=== PATIENT | female | born 1990 | race Caucasian/White ===

== ENCOUNTER → 2020-11-03 | Outpatient (CLI) | payer BC ==
[2020-11-03 09:25] LABS: Basophils % (A) 1 %; Eosinophils # (A) 0.1 k/uL (0-0.7); Eosinophils % (A) 2 %; HCT 38.5 % (34.0-46.0); HGB 12.8 gm/dL (11.4-16.0); Lymphocytes # (A) 1.7 k/uL (1.0-4.8); Lymphocytes % (A) 32 %; MCH 28.4 pg (25.0-35.0); MCHC 33.4 g/dL (31.0-37.0); MCV 85.2 fL (80.0-100.0); Monocytes # (A) 0.3 k/uL (0-1.0); Monocytes % (A) 5 %; Neutrophils # (A) 3.2 k/uL (1.3-7.7); Neutrophils % (A) 59 %; Platelet Count 271 k/uL (150-450); RBC 4.52 m/uL (3.80-5.40); RDW 12.2 % (11.5-15.5); WBC 5.4 k/uL (3.8-10.6)
== END | disposition home or self-care (01) ==
LOC: LABPAT 08:53
PROVIDERS: ATTEND Obstetrics & Gynecology
DX: Z01.818 Encounter for other preprocedural examination (principal); N93.8 Other specified abnormal uterine and vaginal bleeding
CPT/HCPCS: 36415; 85025

== ENCOUNTER 2020-11-07 07:53 | Day surgery (SDC) | payer BC ==
[~2020-11-07 07:53] MED LIST: DEXAMETHASONE SOD PHOSPHATE 4 MG/ML 1 ML VIAL IV ONE; HYDROmorphone 0.5 MG/0.5 ML SYRINGE IVP PRN; LACTATED RINGERS 1,000 ML IV SCH; LIDOCAINE 1% (10MG/ML) FOR IV START INTRADERMA PRN; ONDANSETRON 4 MG/2 ML VIAL IVP ONE; Pre Op ABX Message 1 EACH MISC MISCELLANE ONE; SCOPOLAMINE 1.5MG/72HR PATCH TRANSDERM ONE
[2020-11-07] MEDS: MIDAZOLAM 2 MG/2 ML VIAL IVP ONE ×2 (08:27→08:29)
[2020-11-07] MEDS ORDERED: PROPOFOL 10 MG/ML 20 ML VIAL IV ONE (09:35)
[2020-11-07] MEDS ORDERED: fentaNYL (PF) 50 MCG/ML 2 ML AMP ONE (09:35)
[2020-11-07] MEDS ORDERED: LIDOCAINE 1% INJ 10MG/ML (20 ML MDV) ONE (09:35)
[2020-11-07] MEDS ORDERED: MIDAZOLAM 2 MG/2 ML VIAL ONE (09:35)
[2020-11-07] MEDS ORDERED: LIDOCAINE 1%-EPI 1:100,000 20 ML VIAL SUBMUCOSAL ONE (09:54)
--- NOTE | 2020-11-07 10:14 | P.OP ---
Date of Procedure: 11/07/20 Preoperative Diagnosis: Dysfunctional uterine bleeding Postoperative Diagnosis: Same Procedure(s) Performed: Diagnostic hysteroscopy with NovaSure endometrial ablation Anesthesia: MAC Surgeon: Mariya Rosado Estimated Blood Loss (ml): 5 IV fluids (ml): 400 Urine output (ml): 25 Pathology: none sent Condition: stable Disposition: PACU Operative Findings: Anterior uterus. Fluffy-appearing endometrium. No gross intracavitary lesions Description of Procedure: After the patient was met in the preoperative holding area and all questions were answered, she was taken to the operating room where anesthetic was administered without incident. Appropriate timeout protocol was undertaken. Patient was then positioned, prepped and draped in the dorsal high lithotomy position. The bladder was drained for approximately 25 mL of clear urine. Exam under anesthetic was undertaken and the uterus was noted to be anteverted and approximately 6 weeks' size. Weighted speculum was placed in the vagina and the cervix was grasped anteriorly with single-tooth tenaculum. Paracervical block with lidocaine plus epinephrine was placed. The uterus was sounded to 9 cm. The cervix was then sequentially dilated to allow for passage of the diagnostic hysteroscope. The hysteroscope was introduced and a fluffy endometrium was appreciated. No gross intracavitary lesions were noted. The bilateral tubal ostia were visualized. The hysteroscope was removed and the cervix was further dilated to allow for passage of the NovaSure ablation device. The device was inserted in the uterus with a cavity length of 5.5 cm, width of 3.5 cm. Cavity assessment test was passed without alarm. The device was enabled with a power of 106 W for a treatment cycle of 46 seconds. Following cessation of the treatment cycle the device was removed and the hysteroscope was reintroduced. The complete desiccation of the endometrium was appreciated. The hysteroscope was then removed. The cervix was inspected and the tenaculum was removed. No active bleeding was noted. All instruments removed from the vagina. The patient was awoken from anesthetic without incident and transported recovery area in good condition. All counts reported to me as correct by the operating room staff.
[2020-11-07 10:33] VITALS: TEMP 97.1
[2020-11-07 11:04] VITALS: RESP 18
[2020-11-07 11:24] VITALS: BP 140/80; PULSE 79
== END 2020-11-07 11:59 | disposition home or self-care (01) ==
LOC: OR 07:53
PROVIDERS: ATTEND Obstetrics & Gynecology
DX: N93.8 Other specified abnormal uterine and vaginal bleeding (principal); N92.4 Excessive bleeding in the premenopausal period; N94.6 Dysmenorrhea, unspecified; N92.1 Excessive and frequent menstruation with irregular cycle; Z98.51 Tubal ligation status; J45.909 Unspecified asthma, uncomplicated; Z98.890 Other specified postprocedural states; Z90.49 Acquired absence of other specified parts of digestive tract; Z90.89 Acquired absence of other organs; Z79.899 Other long term (current) drug therapy; Z87.59 Personal history of other complications of pregnancy, childbirth and the puerperium; Z82.5 Family history of asthma and other chronic lower respiratory diseases; Z82.49 Family history of ischemic heart disease and other diseases of the circulatory system; Z80.41 Family history of malignant neoplasm of ovary; Z80.49 Family history of malignant neoplasm of other genital organs
CPT/HCPCS: 81025; 58563; J2250; J1100; J2405; J2001; J3010; J2704

== ENCOUNTER 2022-07-03 18:43 | Inpatient (IN) | payer BC ==
[2022-07-03] MEDS ORDERED: ONDANSETRON 4 MG/2 ML VIAL IVP STA ×2 (19:46→21:47)
--- NOTE | 2022-07-03 19:51 | ED ---
General Adult HPI - General Chief complaint: Neuro Symptoms/Deficit Stated complaint: lt sided numbness after chiro appt Time Seen by Provider: 07/03/22 19:37 Source: patient, RN notes reviewed, old records reviewed Mode of arrival: wheelchair Limitations: no limitations - History of Present Illness Initial comments: 32-year-old female presents for evaluation of acute left-sided weakness to her left arm and leg. She also has numbness. Patient had seen her chiropractor and had a cervical adjustment. She immediately felt her symptoms including nausea and vomiting. She states she has been falling to the left. She denies headache. She has no chronic medical conditions. Patient does report that she is dizzy. Symptoms began at approximately 1735. Patient denies current . - Related Data Home Medications Medication Instructions Recorded Confirmed Albuterol Inhaler [Ventolin Hfa 2 puff INHALATION RT-Q6H PRN 11/03/20 07/03/22 Inhaler] Multivitamins, Thera [Multivitamin 1 tab PO DAILY 11/03/20 07/03/22 (formulary)] Beclomethasone Dip 80 Mcg/Puff 1 puff INHALATION RT-BID PRN 07/03/22 07/03/22 [Qvar 80 mcg] Dextroamphetamine/Amphetamine 20 mg PO BID 07/03/22 07/03/22 [Adderall 20 mg Tablet] Allergies Allergy/AdvReac Type Severity Reaction Status Date / Time No Known Allergies Allergy Verified 07/03/22 22:05 Review of Systems ROS Statement: Those systems with pertinent positive or pertinent negative responses have been documented in the HPI. ROS Other: All systems not noted in ROS Statement are negative. Past Medical History Past Medical History: No Reported History Additional Past Medical History / Comment(s): With her first she had mild pre-eclampsia (hypertension). History of Any Multi-Drug Resistant Organisms: None Reported Past Surgical History: Section, Cholecystectomy, Tonsillectomy Past Anesthesia/Blood Transfusion Reactions: Previous Problems w/ Anesthesia Additional Past Anesthesia/Blood Transfusion Reaction / Comment(s): HAD TO HAVE BLOOD TRANSFUSION WITH first c/s, took long time to come out-"they had to give me something to reverse the anesthesia" Past Psychological History: No Psychological Hx Reported Smoking Status: Never smoker Past Alcohol Use History: None Reported Past Drug Use History: None Reported - Past Family History Mother Family Medical History: No Reported History General Exam Limitations: no limitations General appearance: alert, in distress Head exam: Present: atraumatic, normocephalic Eye exam: Present: normal appearance, PERRL ENT exam: Present: normal exam Neck exam: Present: normal inspection. Absent: tenderness, meningismus Respiratory exam: Present: normal lung sounds bilaterally. Absent: respiratory distress, wheezes Cardiovascular Exam: Present: regular rate, normal rhythm GI/Abdominal exam: Present: soft. Absent: distended, tenderness, guarding Extremities exam: Present: normal inspection, normal capillary refill Neurological exam: Present: alert, oriented X3, CN II-XII intact, motor sensory deficit (NIH of 5, drift in the left upper extremity, left lower extremity, numbness to both upper lower left-sided extremity. + ataxia) Psychiatric exam: Present: anxious Skin exam: Present: warm, diaphoretic Course Vital Signs 07/03/22 07/03/22 07/03/22 19:28 21:59 22:27 Temperature 97.6 F 97 F L Pulse Rate 62 70 60 Respiratory 18 20 18 Rate Blood Pressure 167/92 123/102 127/61 O2 Sat by Pulse 100 98 98 Oximetry - Reevaluation(s) Reevaluation #1: 07/03/221944 Code stroke activated, patient taken immediately to computed tomography scan. 07/03/222014 Case discussed with Dr. Wallace, at the onset of evaluation evaluation and throughout the care of this patient. Reevaluation #2: 07/03/222049 I discussed case with the radiologist who did not see any carotid or vertebral artery dissection or occlusion. CT brain was negative for intracranial hemorrhage or mass effect. Reevaluation #3: 07/03/221929 Patient denies the possibility of . EKG Findings - EKG Comments: EKG Findings:: EKG: Sinus rhythm, rate of 75, DC interval 150, QRS duration 82, QTC 431, tremor artifact limiting assessment, no ST segment elevation. Medical Decision Making - Medical Decision Making 32-year-old female presenting with acute onset left-sided numbness and weakness as well as dizziness and vomiting. This occurred after a chiropractic adjustment prior to arrival. Patient states she had no symptoms prior to this. Patient denies headache. She denies chest pain or abdominal pain. On exam initial NIH is 5. She has left upper and lower extremity numbness and slight drift. She has an ataxia of the left upper extremity. Speech is clear. I did discuss the case with the stroke interventionalist throughout the care of the patient. We had initially discussed TPA, however there is improvement and the exam and her repeat NIH is 2 numbness and slight drift in the left upper extremity. Ataxia resolved. Patient and are reluctant to receive TPA. Lower extremity symptoms improved Patient does undergo CT imaging of the brain and C-spine without contrast and CT angiogram of the head and neck. There is no acute stenosis, no vertebral or carotid artery dissection, no acute bony abnormality identified. patient is given aspirin and Brilinta. IV fluids and symptom control for her dizziness and nausea. TPA was initially ordered but not administered due to improving NIH and patient and declining medication. Patient was offered TPA however felt that the risks outweigh the benefits and there was improvement in symptoms and reduction in NIH. Case discussed with Dr. Stacy who will admit. Neurology placed on consult. - Lab Data Result diagrams: 07/06/22 12:15 07/03/22 19:50 Lab Results 07/03/22 07/03/22 07/03/22 Range/Units 19:50 19:50 19:50 WBC 16.4 H (3.8-10.6) k/uL RBC 4.64 (3.80-5.40) m/uL Hgb 14.1 (11.4-16.0) gm/dL Hct 41.9 (34.0-46.0) % MCV 90.3 (80.0-100.0) fL MCH 30.3 (25.0-35.0) pg MCHC 33.6 (31.0-37.0) g/dL RDW 13.1 (11.5-15.5) % Plt Count 326 (150-450) k/uL MPV 7.2 Neutrophils % 85 % Lymphocytes % 11 % Monocytes % 3 % Eosinophils % 1 % Basophils % 0 % Neutrophils # 13.8 H (1.3-7.7) k/uL Lymphocytes # 1.8 (1.0-4.8) k/uL Monocytes # 0.4 (0-1.0) k/uL Eosinophils # 0.1 (0-0.7) k/uL Basophils # 0.1 (0-0.2) k/uL PT 10.4 (9.0-12.0) sec INR 1.0 (<1.2) APTT 20.1 L (22.0-30.0) sec Sodium 135 L (137-145) mmol/L Potassium 3.4 L (3.5-5.1) mmol/L Chloride 103 (98-107) mmol/L Carbon Dioxide 25 (22-30) mmol/L Anion Gap 7 mmol/L BUN 21 H (7-17) mg/dL Creatinine 0.58 (0.52-1.04) mg/dL Est GFR (CKD-EPI)AfAm >90 (>60 ml/min/1.73 sqM) Est GFR (CKD-EPI)NonAf >90 (>60 ml/min/1.73 sqM) Glucose 142 H (74-99) mg/dL Calcium 9.0 (8.4-10.2) mg/dL Total Bilirubin 0.6 (0.2-1.3) mg/dL AST 29 (14-36) U/L ALT 15 (4-34) U/L Alkaline Phosphatase 67 (38-126) U/L Troponin I (0.000-0.034) ng/mL Total Protein 7.4 (6.3-8.2) g/dL Albumin 4.7 (3.5-5.0) g/dL 07/03/22 Range/Units 19:50 WBC (3.8-10.6) k/uL RBC (3.80-5.40) m/uL Hgb (11.4-16.0) gm/dL Hct (34.0-46.0) % MCV (80.0-100.0) fL MCH (25.0-35.0) pg MCHC (31.0-37.0) g/dL RDW (11.5-15.5) % Plt Count (150-450) k/uL MPV Neutrophils % % Lymphocytes % % Monocytes % % Eosinophils % % Basophils % % Neutrophils # (1.3-7.7) k/uL Lymphocytes # (1.0-4.8) k/uL Monocytes # (0-1.0) k/uL Eosinophils # (0-0.7) k/uL Basophils # (0-0.2) k/uL PT (9.0-12.0) sec INR (<1.2) APTT (22.0-30.0) sec Sodium (137-145) mmol/L Potassium (3.5-5.1) mmol/L Chloride (98-107) mmol/L Carbon Dioxide (22-30) mmol/L Anion Gap mmol/L BUN (7-17) mg/dL Creatinine (0.52-1.04) mg/dL Est GFR (CKD-EPI)AfAm (>60 ml/min/1.73 sqM) Est GFR (CKD-EPI)NonAf (>60 ml/min/1.73 sqM) Glucose (74-99) mg/dL Calcium (8.4-10.2) mg/dL Total Bilirubin (0.2-1.3) mg/dL AST (14-36) U/L ALT (4-34) U/L Alkaline Phosphatase (38-126) U/L Troponin I <0.012 (0.000-0.034) ng/mL Total Protein (6.3-8.2) g/dL Albumin (3.5-5.0) g/dL Critical Care Time Critical Care Time: Yes Total Critical Care Time: 35 Disposition Clinical Impression: Cerebrovascular accident (CVA), Left-sided weakness Disposition: ADMITTED IP TO THIS [facility] Condition: Stable Is patient prescribed a controlled substance at d/c from ED?: No Time of Disposition: 21:30
[2022-07-03 20:01] LABS: Basophils # (A) 0.1 k/uL (0-0.2); Basophils % (A) 0 %; Eosinophils # (A) 0.1 k/uL (0-0.7); Eosinophils % (A) 1 %; HCT 41.9 % (34.0-46.0); HGB 14.1 gm/dL (11.4-16.0); Lymphocytes # (A) 1.8 k/uL (1.0-4.8); Lymphocytes % (A) 11 %; MCH 30.3 pg (25.0-35.0); MCHC 33.6 g/dL (31.0-37.0); MCV 90.3 fL (80.0-100.0); Mean Platelet Volume 7.2; Monocytes # (A) 0.4 k/uL (0-1.0); Monocytes % (A) 3 %; Neutrophils # (A) 13.8 k/uL (1.3-7.7); Neutrophils % (A) 85 %; Platelet Count 326 k/uL (150-450); RBC 4.64 m/uL (3.80-5.40); RDW 13.1 % (11.5-15.5); WBC 16.4 k/uL (3.8-10.6)
[2022-07-03 20:08] LABS: ALT 15 U/L (4-34); AST 29 U/L (14-36); African American GFR (CKD) >90 (>60 ml/min/1.73 sqM); Albumin 4.7 g/dL (3.5-5.0); Alkaline Phosphatase 67 U/L (38-126); Anion Gap 7 mmol/L; Blood Urea Nitrogen 21 mg/dL (7-17); Carbon Dioxide 25 mmol/L (22-30); Chloride 103 mmol/L (98-107); Glucose 142 mg/dL (74-99); Non-African American GFR(CKD) >90 (>60 ml/min/1.73 sqM); Potassium 3.4 mmol/L (3.5-5.1); Sodium 135 mmol/L (137-145); Total Bilirubin 0.6 mg/dL (0.2-1.3); Total Protein 7.4 g/dL (6.3-8.2)
[2022-07-03 20:14] LABS: Prothrombin Time 10.4 sec (9.0-12.0)
[2022-07-03] MEDS ORDERED: Alteplase PER PHARMACY Stroke 1 EACH MISC MISCELLANE PRN (20:16)
[2022-07-03] MEDS ORDERED: ALTEPLASE BOLUS FOR STROKE 5 MG in EMPTY SYRINGE 1 SYR IV STA (20:18)
[2022-07-03] MEDS ORDERED: ALTEPLASE IV STA (20:18)
[2022-07-03 20:20] LABS: Partial Thromboplastin Time 20.1 sec (22.0-30.0)
--- NOTE | 2022-07-03 20:21 | CT ---
EXAMINATION TYPE: CT brain cspine wo con DATE OF EXAM: 07/03/2022 COMPARISON: None HISTORY: L SIDED NUMBNESS AND VOMITING POST CHIROPRACTOR APPT CT DLP: 1378.6 mGycm Automated exposure control for dose reduction was used. Images obtained of the brain with no contrast. Ventricles have normal size. There is no mass effect or midline shift. No sign of intracranial hemorr jb. The calvarium is intact. No evidence of cerebral edema. The cervical vertebra show some straightening. Posterior elements are intact. Facet joints are intact . Disc spaces are normal. Prevertebral soft tissues are intact. IMPRESSION: Negative CT scan of the brain. Mild straightening of the cervical spine and could relate to spasm. No fracture seen.
[2022-07-03] MEDS ORDERED: ASPIRIN 325 MG TAB PO STA (20:37)
[2022-07-03] MEDS ORDERED: TICAGRELOR 90 MG TAB PO STA (20:37)
--- NOTE | 2022-07-03 20:59 | CT ---
EXAMINATION TYPE: CT angio head neck DATE OF EXAM: 07/03/2022 COMPARISON: HISTORY: L SIDED NUMBNESS AND VOMITING POST CHIROPRACTOR APPT CT DLP: 399.6 mGycm Automated exposure control for dose reduction was used. CONTRAST: Performed with IV Contrast, patient injected with 65 mL of Isovue 370. Images obtained from the aortic arch to the vertex of the brain with the IV contrast. 3-D post proces sed images. FINDINGS: There is normal branching pattern of the great vessels on the aortic arch. There is arterial flow in both subclavian arteries. There is arterial flow in both vertebral arteries. Right vertebral artery i s smaller than the left. There is arterial flow in the common internal and external carotid arteries bilaterally. There is wide patency the carotid artery bifurcations. No evidence of carotid or vertebr al artery aneurysm or dissection. There is arterial flow in the anterior middle and posterior cerebral arteries bilaterally. No evidenc e of intracranial aneurysm or neovascularity. No mass effect. The posterior cerebral arteries appear to fill almost entirely through the posterior communicating arteries. There is normal enhancement of the venous sinuses. No evidence of intracranial hemodynamic arterial s tenosis. No evidence of filling defect in the venous sinuses. There is normal enhancement of the veno us sinuses. IMPRESSION: Negative CT angiogram of the neck. Negative CT angiogram of the brain.
[2022-07-03] MEDS ORDERED: SODIUM CHLORIDE 0.9% 50 ML MINI-BAG IV ONE (21:16)
[2022-07-03] MEDS ORDERED: LORazepam 2 MG/ML INJ IV STA (21:17)
[2022-07-03] MEDS ORDERED: LORazepam 2 MG/ML INJ IV PRN (21:52)
[2022-07-03] MEDS: SODIUM CHLORIDE 0.9% 1,000 ML IV SCH (22:02)
[2022-07-04] MEDS: LORazepam 2 MG/ML INJ IV PRN ×2 (01:34→06:04)
[2022-07-04] MEDS: ONDANSETRON 4 MG/2 ML VIAL IVP PRN ×3 (03:54→20:55)
[2022-07-04 06:15] LABS: Glucose,Whole Blood 120 mg/dL (70-110)
[2022-07-04] MEDS ORDERED: ATORVASTATIN 80 MG TAB PO STA (06:38)
--- NOTE | 2022-07-04 07:19 | CT ---
EXAMINATION TYPE: CT brain wo con DATE OF EXAM: 07/04/2022 COMPARISON: 07/03/2022 HISTORY: 32-year-old female New left side facial droop TECHNIQUE: Examination was done in axial plane without intravenous contrast. Coronal and sagittal r econstructions performed. CT DLP: 1092.4 mGycm Automated exposure control for dose reduction was used. FINDINGS: Mild calvarial artifacts. Within this limitation, there is no evidence of acute intracranial hemorrh age, acute ischemic changes, mass, mass-effect, or extra-axial fluid collection. There is no effacem ent of cerebral sulci or basal subarachnoid cisterns. There is no hydrocephalus. There is no midlin e shift. Veloz-white matter distinction is preserved. Leftward nasal septal deviation. Paranasal sinuses and mastoid air cells are well pneumatized. Orbits and globes are intact. Patient is noted to be slightly divergent suggesting underlying strabismus. IMPRESSION: Stable exam without acute intracranial abnormality seen.
--- NOTE | 2022-07-04 10:05 | P.CNNES ---
History of Present Illness Consult date: 07/04/22 Requesting physician: Zoran Ramirez Reason for Consult: acute left upper and lower limb weakness and numbness History of Present Illness: This is a 32-year-old woman who presented emergency department on 07/03/2022 because of acute left-sided the weakness as well as numbness. History was obtained from the patient's as well as her father. Patient history the was at the chiropractor and had cervical adjustment and immediately had weakness over the left side, had nausea and vomiting. Seems her symptoms began around 5:35pm yesterday (but per she was at getting manipulation possibly between 5:15p to 5:30ish). She is not on any antiplatelets, anticoagulation or any statin. She denied of any headache. She does not have any history of stroke or TIA. Patient socially drink alcohol. Denies tobacco use or illicit drug use. She is not on any contraceptives and her has vasectomy. In our facility per the ED team patient had NIH of a 5 of left upper and lower extremity weakness and numbness had ataxia the left upper extremity. The stroke code was activated. CT of the head is reported as negative CT scan of the brain. I personally reviewed the CT of the head and is negative for any acute ischemia, subacute ischemia or any interpretable hemorrhage. CT cervical spine was reported as mild straightening of the cervical spine and could relate to spasm. No fracture seen. CT angiography of the head and neck was reported as negative Initial white blood cell is 13.4K A she is afebrile during his hospital stay Initial serum glucose is 142, AST and ALT is within normal limits PT is 10.4, INR is 1.0, PTT is 20.1 EKG is reported as sinus rhythm. Moderate T-wave abnormality, consider anterior ischemia. Abnormal EKG. The ED team spoke with the stroke neuro-cargo supervisor regarding this case Per the ED team patient NIH symptoms improved to a 2 with numbness and slight drift in left upper extremity she was offered the TPA but was felt the risk outweighed the benefit since there was improvement in her symptoms. Also notified that yesterday he refused because of risks of medication. Patient was started on aspirin and Brilinta per the stroke interventionalist request. Today around 6:30 S a.m. I was notified that the patient has new left facial droop but continues to have left-sided weakness and numbness. Therefore I ordered a CT of the head stat It is reported as stable exam without acute intracranial abnormality seen. I personally reviewed the CT of the head and I agree with the report She has been getting Ativan when necessary because her anxiety and received Ativan yesterday and received one early in the morning before 7:00 and upon seeing her she was drowsy. Review of Systems Review of system: The 12 point system was reviewed and apparent positive and negative per HPI. Past Medical History Past Medical History: No Reported History Additional Past Medical History / Comment(s): she had pre-eclampsia (3 births)(hypertension). History of Any Multi-Drug Resistant Organisms: None Reported Past Surgical History: Section, Cholecystectomy, Tonsillectomy Past Anesthesia/Blood Transfusion Reactions: Previous Problems w/ Anesthesia Additional Past Anesthesia/Blood Transfusion Reaction / Comment(s): HAD TO HAVE BLOOD TRANSFUSION WITH first c/s, took long time to come out-"they had to give me something to reverse the anesthesia" Past Psychological History: No Psychological Hx Reported Smoking Status: Never smoker Past Alcohol Use History: None Reported Past Drug Use History: None Reported - Past Family History Mother Family Medical History: No Reported History Medications and Allergies Home Medications Medication Instructions Recorded Confirmed Type Albuterol Inhaler [Ventolin Hfa 2 puff INHALATION RT-Q6H PRN 11/03/20 07/03/22 History Inhaler] Multivitamins, Thera [Multivitamin 1 tab PO DAILY 11/03/20 07/03/22 History (formulary)] Beclomethasone Dip 80 Mcg/Puff 1 puff INHALATION RT-BID PRN 07/03/22 07/03/22 History [Qvar 80 mcg] Dextroamphetamine/Amphetamine 20 mg PO BID 07/03/22 07/03/22 History [Adderall 20 mg Tablet] Allergies Allergy/AdvReac Type Severity Reaction Status Date / Time No Known Allergies Allergy Verified 07/03/22 22:05 Physical Examination - Vital Signs Vital Signs: Vital Signs Temp Pulse Pulse Resp BP BP Pulse Ox 07/04/22 03:54 98 F 86 16 115/74 99 07/04/22 02:00 16 07/04/22 00:00 16 07/03/22 23:30 97.8 F 65 16 120/76 99 07/03/22 22:27 97 F L 60 18 127/61 98 07/03/22 21:59 70 20 123/102 98 07/03/22 19:28 97.6 F 62 18 167/92 100 Intake and Output 07/03/22 07/04/22 07/04/22 22:59 06:59 14:59 Output Total 500 Balance -500 Output: Urine 500 Straight 500 Other: # Voids 1 Weight 53.07 kg 53.07 kg GENERAL: The patient is lying in bed and is not in acute distress. CHEST: The heart rate is regular rate rhythm. No murmurs to auscultation. No carotid bruit bilaterally. LUNG: Clear to auscultation bilaterally no wheezing noted throughout. Not labored breathing. ABDOMEN/GI: Bowel sounds present in all 4 quadrants. No tenderness to palpation throughout. NEUROLOGICAL: Limited since drowsy/received Ativan. Higher mental function: The patient is drowsy but is awakeable to voice. Is oriented to self, place and time. Is following commands but slowing in respon ding. Language is limited but no aphasia or neglect. Cranial nerves: The pupils are round, equal and reactive to light. Visual snell are full to confrontation throughout. Extraocular movement is intact no nystagmus is noted. Facial sensation is normal to touch throughout. The facial strength is mild left lower facial weakness. Tongue is midline and moved [id number] without any difficulty. No dysarthria is noted. Motor: The strength is left side is proximallly 3-4 while distally 4-, left lower is 4+ and mild drift. Right side is 5/5. Decrease tone over the left but normal on the right. Normal bulk. Cerebellum: Normal finger to nose on the right but had hard time performing on left because of weakness. Normal heel to bhaena bilaterally. Sensation: Sensation is normal to touch throughout. Reflexes (right/left): Left triceps and brachioradialis is 1+,Patellar is 3+. Otherwise 2+ throughout. Plantars are mute bilaterally. Results - Laboratory Findings CBC and BMP: 07/03/22 19:50 07/03/22 19:50 Abnormal Lab Findings: Abnormal Labs 07/03/22 07/03/22 07/03/22 19:50 19:50 19:50 WBC 16.4 H Neutrophils # 13.8 H APTT 20.1 L Sodium 135 L Potassium 3.4 L BUN 21 H Glucose 142 H POC Glucose (mg/dL) 07/04/22 06:12 WBC Neutrophils # APTT Sodium Potassium BUN Glucose POC Glucose (mg/dL) 120 H Assessment and Plan Assessment: This is a 32 year-old woman who was at chiropractor and had her neck manipulated on and immediately had left sided weakness, numbness, nausea and vomiting. Likely Acute Ischemic stroke. She did not receive IV tpa yesterday since it was felt symptoms was improving but not resolved and today had new mild left facial droop Plan: I ordered MRI of the brain, MRI of the cervical spine, MRA of the head and neck In the meantime I ordered also carotid duplex Ordered 2-D echo with bubble study. Lipid panel is ordered and is pending Yesterday she was given aspirin 325 once and Brilinta 180mg once per Interventional Neurology request and started on Brilinta 90mg 1 tab bid. In addition I started her on ASA 81mg once with loading dose of Lipitor 80mg once. She was started on Lipitor 80mg qhs. Continue neuro checks On cardiac monitoring PT OT and GUN STOCKER are consulted Avoid the use of Ativan as much as possible and if needed can give the patient Seroquel to 5 mg 1 tablet twice a day when necessary as she can't tolerate can give hold all when necessary Currently she is on Zofran 4 mg every 6 hours when necessary I ordered urine drug screen as well as a urine hCG and this was notified to the patient's . We'll defer the rest of the medical management to primary team For DVT prophylaxis: Started on subq heparin 5000U every 8 hours. Plan is discussed with the patient's and the father who are bedside. Thank you for the consultation. Jose E Rubio M.D. Neuro-hospitalist Time with Patient: Greater than 30
--- NOTE | 2022-07-04 10:12 | US ---
EXAMINATION TYPE: US carotid duplex BILAT DATE OF EXAM: 07/04/2022 COMPARISON: NONE CLINICAL HISTORY: stroke. Stroke TECHNIQUE: Carotid duplex ultrasound examination. Indirect Doppler criteria was utilized. FINDINGS: EXAM MEASUREMENTS: RIGHT: Peak Systolic Velocity (PSV) cm/sec ----- Right CCA: 78.4 ----- Right ICA: 87.1 ----- Right ECA: 100.2 ICA/CCA ratio: 1.1 RIGHT: End Diastole cm/sec ----- Right CCA: 20.2 ----- Right ICA: 34.8 ----- Right ECA: 15.9 LEFT: Peak Systolic Velocity (PSV) cm/sec ----- Left CCA: 82.7 ----- Left ICA: 94.3 ----- Left ECA: 69.6 ICA/CCA ratio: 1.1 LEFT: End Diastole cm/sec ----- Left CCA: 24.6 ----- Left ICA: 43.5 ----- Left ECA: 19 VERTEBRALS (direction of flow): Right Vertebral: Antegrade Left Vertebral: Antegrade Rhythm: Normal DIRECTOR OF PHYSICIAN PRACTICES NOTES: No significant stenosis seen Grayscale, color Doppler, spectral Doppler imaging performed of the carotid arteries. Waveform analys is does not show significant stenosis of the internal carotid arteries. IMPRESSION: No hemodynamic significant stenosis of the proximal internal carotid arteries by Doppler criteria, an indirect measurement of carotid stenosis Criteria for Assigning % of Stenosis / Diameter reduction (Estimation based on the indirect measurements of the internal carotid artery velocities (ICA PSV). 1. Normal (no stenosis)=ICA PSV < 125 cm/s: ratio < 2.0: ICA EDV<40 cm/s. 2. Less than 50% stenosis=ICA PSV < 125 cm/s: ratio < 2.0: ICA EDV<40 cm/s. 3. 50 to 69% stenosis=ICA PSV of 125 to 230 cm/s: ration 2.0 ? 4.0: ICA EDV 40-100 cm/s. 4. Greater than 70% stenosis to near occlusion= ICA PSV > 230 cm/s: ratio > 4.0: ICA EDV > 100 cm/s. 5. Near occlusion= ICA PSV velocities may be low or undetectable: variable ratio and ICA EDV. 6. Total occlusion=unable to detect flow.
[2022-07-04] MEDS: ASPIRIN 81 MG PO SCH (12:53)
[2022-07-04] MEDS: HEPARIN SODIUM,PORCINE/PF 5,000 UNIT/0.5 ML SYRINGE SQ SCH ×3 (12:54→23:11)
[2022-07-04] MEDS: TICAGRELOR 90 MG TAB PO SCH ×2 (12:55→20:50)
--- NOTE | 2022-07-04 13:40 | P.CNOR ---
History of Present Illness - [facility] Consult date: 07/04/22 Consult reason: other History of present illness: Acute left-sided weakness and facial droop after chiropractic manipulation yesterday The patient is seen and examined today at bedside. She is a very pleasant 32 -year-old female complained by her significant other after being admitted to the hospital. Apparently yesterday she was at the chiropractor where she gets occasional adjustments. She is otherwise healthy without any significant problems and works for [employer] in full duty capacity without any restriction. She says that while she was getting her neck manipulated she felt sudden change at her neck and left side. She had immediate weakness at her upper and lower extremity on the left side and developed facial drooping and changes. She was not having a problem is with her right side. She says this is never happened to her before. She says it is not particular pain but takes. Tiredness overall and weakness and inability to move distally at her left arm and significant weakness at her left leg. She presented to the emergency room she had evaluation where her CT scans were negative for acute bleed or shift. Her vascular studies did not show any obvious occlusion or vascular dissection. She was ordered to have TPA but declined this as some of her symptoms were having some improvement. Apparently she initially had to be straight cathed but is now voiding on her own. She has developed some slurring and some facial droop. She is not sure if that happens immediately after the incident but developed over the course the day yesterday. She does not feel she is making any improvement in her strength in her upper or lower extremity. She is scheduled to have further imaging with MRI of her head and neck today. She denies significant problems with radiculopathy the past but has some chronic mild ache in her low back for which she gets adjustments. Review of Systems Anesthesia per [facility]. Initially she did have some feelings of nausea at the time of the incident yesterday with her chiropractor. She is no longer having nausea or vomiting. She is not having loss of control or bowel bladder function. She does not localize any specific pain with questioning but feels tired all over and feels worse at her left upper extremity and her whole left side. She denies any chest pain or shortness breath. Denies any changes in her vision. Past Medical History Past Medical History: No Reported History Additional Past Medical History / Comment(s): she had pre-eclampsia (3 births)(hypertension). History of Any Multi-Drug Resistant Organisms: None Reported Past Surgical History: Section, Cholecystectomy, Tonsillectomy Past Anesthesia/Blood Transfusion Reactions: Previous Problems w/ Anesthesia Additional Past Anesthesia/Blood Transfusion Reaction / Comm: HAD TO HAVE BLOOD TRANSFUSION WITH first c/s, took long time to come out-"they had to give me something to reverse the anesthesia" Past Psychological History: No Psychological Hx Reported Smoking Status: Never smoker Past Alcohol Use History: None Reported Past Drug Use History: None Reported - Past Family History Mother Family Medical History: No Reported History Medications and Allergies Home Medications Medication Instructions Recorded Confirmed Type Albuterol Inhaler [Ventolin Hfa 2 puff INHALATION RT-Q6H PRN 11/03/20 07/03/22 History Inhaler] Multivitamins, Thera [Multivitamin 1 tab PO DAILY 11/03/20 07/03/22 History (formulary)] Beclomethasone Dip 80 Mcg/Puff 1 puff INHALATION RT-BID PRN 07/03/22 07/03/22 History [Qvar 80 mcg] Dextroamphetamine/Amphetamine 20 mg PO BID 07/03/22 07/03/22 History [Adderall 20 mg Tablet] Allergies Allergy/AdvReac Type Severity Reaction Status Date / Time No Known Allergies Allergy Verified 07/03/22 22:05 Physical Examination Osteopathic Statement: *. No significant issues noted on an osteopathic structural exam other than those noted in the History and Physical/Consult. - C Spine: dermatomal strength & reflexes left Shoulder strength: flexion: 3/5 (On exam at her face she has obvious asymmetry with left-sided facial drooping. She has weakness with shrugging her left shoulder on the left about 3 minus out of 5 which is 5 out of 5 on the right. Her biceps on the left is about 2+ out of 5 her [employer] on the left is 2 out of 5. She has some decrea) Shoulder strength: extension: 3/5 (She has some decreased sensation over her left upper extremity globally and of her left trunk and abdomen. Decreased sensation over left lower extremity globally. She has 3+ out of 5 hip flexion and knee extension on the left and 25 dorsiflexion on the left. 5 out of 5 on the right globally. Sli) Shoulder strength: abduction: 3/5 (Slight hyperreflexia at the left lower extremity) Results Reports from the head and brain CT as well as a CT angiogram reviewed. They do not show any obvious shift or bleed. They do not show any obvious vertebral artery dissection. - Labs Labs: Abnormal Lab Results - Last 24 Hours (Table) 07/03/22 07/03/22 07/03/22 Range/Units 19:50 19:50 19:50 WBC 16.4 H (3.8-10.6) k/uL Neutrophils # 13.8 H (1.3-7.7) k/uL APTT 20.1 L (22.0-30.0) sec Sodium 135 L (137-145) mmol/L Potassium 3.4 L (3.5-5.1) mmol/L BUN 21 H (7-17) mg/dL Glucose 142 H (74-99) mg/dL POC Glucose (mg/dL) (70-110) mg/dL 07/04/22 Range/Units 06:12 WBC (3.8-10.6) k/uL Neutrophils # (1.3-7.7) k/uL APTT (22.0-30.0) sec Sodium (137-145) mmol/L Potassium (3.5-5.1) mmol/L BUN (7-17) mg/dL Glucose (74-99) mg/dL POC Glucose (mg/dL) 120 H (70-110) mg/dL H & H 07/03/22 Range/Units 19:50 Hgb 14.1 (11.4-16.0) gm/dL Hct 41.9 (34.0-46.0) % Coagulation 07/03/22 Range/Units 19:50 INR 1.0 (<1.2) Result Diagrams: 07/03/22 19:50 07/03/22 19:50 Assessment and Plan Assessment: Acute left-sided weakness at the upper and lower extremity with facial droop on the left after an incident with chiropractic cervical manipulation Plan: Acute left-sided weakness at the upper and lower extremity with facial droop on the left after an incident with chiropractic cervical manipulation Patient has acute changes at her face and upper and lower extremity and left trunk after the incident yesterday with surgical manipulation. She is quite young and otherwise essentially healthy. Clinically it manifests as a cerebrovascular accident. Her initial scanning of her brain and cervical spine with CAT scan do not show any obvious vascular bleed or shift. She is scheduled to undergo MRI of her brain and cervical spine stat and I agree with this. She is being actively managed with medicine and neurology service and I am in agreement with that. Apparently she had some initial improvement and did not have TPA. She could be potential candidate for steroid medication if deemed a ppropriate by medicine. She does not have specific radicular symptoms at her upper or lower extremity and certainly spinal issues mechanically without account for her facial droop. Clinically she does seem to be experiencing a sort of cerebral vascular accident and should continue with medical management. We will watch for the results of the MRI of her cervical spine closely. We will have further recommendations to follow.
[2022-07-04 13:48] LABS: Amphetamine Screen,Urine Detected (NotDetected); Barbiturate Screen,Urine Not Detected (NotDetected); Benzodiazepines Screen,Urine Detected (NotDetected); Cocaine Screen,Urine Not Detected (NotDetected); Methadone Screen, Urine Not Detected (NotDetected); Opiate Screen,Urine Not Detected (NotDetected); Oxycodone Screen, Urine Not Detected (NotDetected); Phencyclidine Screen,Urine Not Detected (NotDetected); Tricyclic Antidepressant,Urine Not Detected (NotDetected); Urn Cannabinoid Scrn Not Detected (NotDetected)
--- NOTE | 2022-07-04 14:28 | P.HPIM ---
History of Present Illness H&P Date: 07/04/22 Chief Complaint: Left-sided weakness I'm rounding for Dr. Kiet Stacy This is a pleasant 32-year-old patient who follows with Dr. Kiet Stacy. Patient normally good health. Patient somewhat sleepy this morning he did receive some sedated. History is obtained by the at the bedside. Also present the patient's cousin and her . Patient though wakes up and then dozes off. Patient yesterday had gone to a chiropractor telephone #[phone]. She had some neck and back manipulation done. When she came out of the room she was leaning to the left side. As she was weak on that side. Also facial asymmetry. Initial computed tomography scan was unremarkable. ER physician did activate her "stroke. Did discuss with . In the ER she complained of left upper and lower extremity numbness. Speech was clear. Assess some improvement in the ER TPA was not given. Lower extremity symptoms are better. CT angiogram was unremarkable. Patient is put on aspirin. Brillintal for stroke. Neurology was consulted. 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 No smoking or alcohol. No recreational drugs reported. Physical examination: VITAL SIGNS: 97.8, 83, 16, 1 27 x 74, 98% room air GENERAL: BMI 22.1, laying in bed sleepy. EYES: Pupils equal. Conjunctiva normal. HEENT: External appearance of nose and ears normal, oral cavity grossly normal. NECK: JVD not raised; masses not palpable. HEART: First and second heart sounds are normal; no edema. LUNGS: Respiratory rate normal; clear to auscultation. ABDOMEN: Soft, nontender, liver spleen not palpable, no masses palpable. PSYCH: Sleepy but does wake up answered questions then dozes offl. MUSCULOSKELETAL:No Clubbing/cyanosis;muscles-grossly intact NEUROLOGICAL: Mouth to the right. Some decreased sensation on the left face. Decreased power in the left arm and left leg-3/5. Hyperreflexia on the left side. Some decrease in sensation.. LYMPHATICS: No lymph nodes palpable in the axilla and neck INVESTIGATIONS, reviewed in the clinical context: White count 16.4 hemoglobin 14.1 platelets 326 sodium 135 progression 3.4 creatinine 0.58 Urine drug screen positive for amphetamine, benzodiazepine. Urine hCG: Not detected EKG tracing personally reviewed by me-no sinus rhythm. Rate 75. Head cervical spine without contrast: Negative no fracture. CT angiogram of the head and neck: Negative no dissection reported. Computed tomography scan brain: Unremarkable Assessment and plan: -Patient presented acute left-sided weakness and decreased sensation following neck manipulation at chiropractor. Initial computed tomography scan brain negative for stroke. Some improvement in the ER. Hence TPA not given. Patient on antiplatelet agent. Currently being treated for stroke. Concern about underlying spinal cord injury with manipulation to be kept in mind. I did speak to Dr. Rubio from neurology. MRI of the next pending. He also spoke to from orthopedic spine. We'll start the patient on IV Solu-Medrol. Aspirin,Brillinta. Lipitor -Hypokalemia Replace potassium -Urine drug screen positive for amphetamine, benzodiazepine. Note patient is on Adderall -Intermittent asthma Qvar and albuterol when necessary -ADHD Adderall 20 mg twice a day Resume home medications.. Lipitor. MRI of the neck. Neuro checks. Consultation with neurology and orthopedic spine. Care was discussed with the patient's and family at the bedside. IV Solu-Medrol. Past Medical History Past Medical History: No Reported History Additional Past Medical History / Comment(s): she had pre-eclampsia (3 births)(hypertension). History of Any Multi-Drug Resistant Organisms: None Reported Past Surgical History: Section, Cholecystectomy, Tonsillectomy Past Anesthesia/Blood Transfusion Reactions: Previous Problems w/ Anesthesia Additional Past Anesthesia/Blood Transfusion Reaction / Comment(s): HAD TO HAVE BLOOD TRANSFUSION WITH first c/s, took long time to come out-"they had to give me something to reverse the anesthesia" Past Psychological History: No Psychological Hx Reported Smoking Status: Never smoker Past Alcohol Use History: None Reported Past Drug Use History: None Reported - Past Family History Mother Family Medical History: No Reported History Medications and Allergies Home Medications Medication Instructions Recorded Confirmed Type Albuterol Inhaler [Ventolin Hfa 2 puff INHALATION RT-Q6H PRN 11/03/20 07/03/22 History Inhaler] Multivitamins, Thera [Multivitamin 1 tab PO DAILY 11/03/20 07/03/22 History (formulary)] Beclomethasone Dip 80 Mcg/Puff 1 puff INHALATION RT-BID PRN 07/03/22 07/03/22 History [Qvar 80 mcg] Dextroamphetamine/Amphetamine 20 mg PO BID 07/03/22 07/03/22 History [Adderall 20 mg Tablet] Allergies Allergy/AdvReac Type Severity Reaction Status Date / Time No Known Allergies Allergy Verified 07/03/22 22:05 Physical Exam Vitals: Vital Signs Temp Pulse Pulse Resp BP BP Pulse Ox 07/04/22 08:30 97.8 F 83 16 127/74 98 07/04/22 03:54 98 F 86 16 115/74 99 07/04/22 02:00 16 07/04/22 00:00 16 07/03/22 23:30 97.8 F 65 16 120/76 99 07/03/22 22:27 97 F L 60 18 127/61 98 07/03/22 21:59 70 20 123/102 98 07/03/22 19:28 97.6 F 62 18 167/92 100 Intake and Output 07/03/22 07/04/22 07/04/22 22:59 06:59 14:59 Output Total 500 Balance -500 Output: Urine 500 Straight 500 Other: Voiding Method Bedpan # Voids 1 Weight 53.07 kg 53.07 kg Results CBC & Chem 7: 07/03/22 19:50 07/03/22 19:50 Labs: Abnormal Lab Results - Last 24 Hours (Table) 07/03/22 07/03/22 07/03/22 Range/Units 19:50 19:50 19:50 WBC 16.4 H (3.8-10.6) k/uL Neutrophils # 13.8 H (1.3-7.7) k/uL APTT 20.1 L (22.0-30.0) sec Sodium 135 L (137-145) mmol/L Potassium 3.4 L (3.5-5.1) mmol/L BUN 21 H (7-17) mg/dL Glucose 142 H (74-99) mg/dL POC Glucose (mg/dL) (70-110) mg/dL 07/04/22 Range/Units 06:12 WBC (3.8-10.6) k/uL Neutrophils # (1.3-7.7) k/uL APTT (22.0-30.0) sec Sodium (137-145) mmol/L Potassium (3.5-5.1) mmol/L BUN (7-17) mg/dL Glucose (74-99) mg/dL POC Glucose (mg/dL) 120 H (70-110) mg/dL Thrombosis Risk Factor Assmnt - Choose All That Apply Any of the Below Risk Factors Present?: No
[2022-07-04] MEDS ORDERED: DEXTROSE 50% SYRINGE 50 ML IVP PRN ×2 (14:48)
--- NOTE | 2022-07-04 15:27 | CA ---
Transthoracic Echo Report Name: Janel Couch Age: 32 Gender: F : 1990 Exam Date: 07/04/2022 09:23 Exam Location: [place] [facility] Ht (in): 61 Wt (lb): 117 Ordering Physician: Jose E Rubio MD Attending/Referring Phys: Machine Ii Coremaker Margaret Thornton RDCS Procedure CPT: Indications: stroke. with bubble Cardiac Hx: Technical Quality: Good Contrast 1: Agitated Saline Total Dose (mL): 2 Contrast 2: Total Dose (mL): MEASUREMENTS (Male / Female) Normal Values 2D ECHO LV Diastolic Diameter PLAX 3.6 cm 4.2 - 5.9 / 3.9 - 5.3 cm LV Systolic Diameter PLAX 1.9 cm IVS Diastolic Thickness 0.9 cm 0.6 - 1.0 / 0.6 - 0.9 cm LVPW Diastolic Thickness 0.8 cm 0.6 - 1.0 / 0.6 - 0.9 cm LV Relative Wall Thickness 0.5 RV Internal Dim ED PLAX 1.9 cm M-MODE Aortic Root Diameter MM 3.3 cm LA Systolic Diameter MM 1.9 cm LA Ao Ratio MM 0.6 MV E Point Septal Separation 0.6 cm AV Cusp Separation MM 1.5 cm DOPPLER AV Peak Velocity 106.0 cm/s AV Peak Gradient 4.5 mmHg MV Area PHT 2.9 cm??? MR Peak Velocity 184.9 cm/s MR Peak Gradient 13.7 mmHg Mitral E Point Velocity 124.2 cm/s Mitral A Point Velocity 97.7 cm/s Mitral E to A Ratio 1.3 MV Deceleration Time 263.3 ms MV E' Velocity 11.3 cm/s Mitral E to MV E' Ratio 11.0 TR Peak Velocity 117.2 cm/s TR Peak Gradient 5.5 mmHg Right Ventricular Systolic Press 10.3 mmHg FINDINGS Left Ventricle Normal Left ventricular size, wall thickness, systolic function with no obvious regional wall motion abnormalities. Normal Left ventricular diastolic filling pattern. Left ventricular ejection fraction is estimated at 55-60_%. Right Ventricle The right ventricle is normal in size and function. Right Atrium The right atrium is normal in size. Negative agitated saline bubble study for right to left shunt. Left Atrium The left atrium is normal in size. Mitral Valve Can not exclude possible mild mvp. There is mild mitral regurgitation. Aortic Valve Structurally normal aortic valve without significant sclerosis or stenosis. There is no aortic regurgitation. Tricuspid Valve Structurally normal tricuspid valve without significant stenosis. Pulmonary artery systolic pressure is normal. Trace tricuspid regurgitation. Pulmonic Valve Structurally normal pulmonic valve without significant stenosis. There is no pulmonic regurgitation. Pericardium Normal pericardium without effusion. Aorta Normal aortic root dimension. CONCLUSIONS Normal LV systolic function ejection fraction greater than 60% Redundant mitral valve leaflets Previewed by: Dr. Giles Man MD (Electronically Signed) Final Date: 04 July 2022 15:26
--- NOTE | 2022-07-04 15:28 | MR ---
MRI BRAIN AND CERVICAL SPINE: CLINICAL HISTORY: 32-year-old female with history of left-sided numbness and vomiting post chiropract or, rule out CVA. TECHNIQUE: Multiplanar, multisequence imaging of the brain and cervical spine is performed without IV contrast. COMPARISON: CT head 07/04/2022, CTA head neck 07/03/2022 FINDINGS: Brain volume is age appropriate. The brain parenchyma signal is normal. No abnormal parenchymal signa l. No evidence of restricted diffusion. No evidence of mass, mass effect, acute ischemia or abnormal extra-axial fluid collections. The globes and sinuses are unremarkable. Intracranial flow voids are m aintained. Sagittal images of the cervical spine show the craniocervical junction to appear within normal limits . The cervical and upper thoracic spinal cord is normal in course, caliber, and signal. Vertebral a lignment is anatomic. Multilevel disc desiccation. The vertebral body and intravertebral disk height s are normal. The bone marrow signal intensity is within normal limits. No spinal canal stenosis. Mi ld left neural foraminal stenosis at C5-C6 secondary to subarticular/foraminal disc herniation (serie s 1201, image 30 and series 1101, image 5). IMPRESSION: 1. No evidence for acute CVA or mass. 2. Mild left neuroforaminal stenosis at C5-C6 secondary to disc herniation. No central canal stenosis .
--- NOTE | 2022-07-04 15:33 | MR ---
EXAMINATION TYPE: MR angio head wo/neck wo/w con DATE OF EXAM: 07/04/2022 COMPARISON: Carotid US earlier today. CTA of the head and neck one day earlier. HISTORY: Dissection and code stroke. TECHNIQUE: MRA neck with IV contrast, 5cc of gadolinium. Time of flight images focusing on the [place] were performed without contrast. 2-D and 3-D postprocessing imaging is performed on independent workstation without IV contrast. FINDINGS: There is three-vessel origin from the aortic arch redemonstrated. No significant focal sten osis in the common or internal carotid arteries bilaterally including at the level of carotid bulbs. There is dominant left vertebral artery. Vertebral arteries are patent to the basilar junction with s mall caliber but patent distal right vertebral artery redemonstrated. There are patent bilateral post erior communicating arteries. There is no significant focal stenosis or aneurysm in the posterior cir culation. Anterior circulation shows patent anterior communicating artery. There is no significant fo sesar stenosis or aneurysm seen. IMPRESSION: 1. No significant focal stenosis or dissection in the common or internal carotid arteries bilaterally . 2. No significant focal stenosis or aneurysm at the level of the [place] of [place].
[2022-07-04 15:47] LABS: Glucose,Whole Blood 96 mg/dL (70-110)
[2022-07-04 16:16] LABS: Chol/HDL Ratio 2.28 Ratio; LDL Cholesterol,Calculated 67.4 mg/dL (0.0-131.0)
[2022-07-04] MEDS: methylPREDNISolone SOD SUCCI 40 MG/ML 1 ML VIAL IV SCH ×3 (16:57→23:24)
[2022-07-04 17:00] LABS: Glucose,Whole Blood 95 mg/dL (70-110)
[2022-07-04] MEDS: SODIUM CHLORIDE 0.9% 1,000 ML IV SCH ×3 (17:01→20:50)
[2022-07-04] MEDS: INSULIN ASPART (NovoLOG) 100 UNIT/ML VIAL SQ SCH ×2 (17:02→20:19)
[2022-07-04] MEDS: NON FORMULARY DRUG (Dextroamphetamine/Amphetamine [Adderall 20 Mg Tablet] 20 MG Tablet) PO SCH (17:02)
[2022-07-04] MEDS: MECLIZINE 12.5 MG TAB PO PRN (18:48)
[2022-07-04 20:11] LABS: Glucose,Whole Blood 151 mg/dL (70-110)
[2022-07-04] MEDS: ATORVASTATIN 80 MG TAB PO SCH (20:50)
[2022-07-04] MEDS: QUEtiapine 25 MG TAB PO PRN (20:51)
[2022-07-05] MEDS: QUEtiapine 25 MG TAB PO PRN (01:42)
[2022-07-05] MEDS: MECLIZINE 12.5 MG TAB PO PRN ×2 (02:05→13:47)
--- NOTE | 2022-07-05 04:59 | P.CONS ---
History of Present Illness - Chief Complaint Gait disturbance, left hemiplegia - History of Present Illness I had the opportunity to see patient for inpatient rehab consultation with regard to gait disturbance, left hemiplegia. Patient admitted with [facility], Dr. Kiet Stacy, July 03 with acute onset left-sided weakness after recent chiropractic manipulation. Seen by the neurology, Dr. Jose E Rubio who concurred with most likely diagnosis stroke. Seen by Dr. Walsh who concurs with diagnosis stroke more likely than cervical disease. Note laboratories head CT is have been negative. C-spine CT's with mild flattening of lordosis initially only. Angiogram CT negative. Head MRI/MRA negative. Carotid Doppler done. Head shows no hemorrhage, mass effect or midline shift. C-spine with left C5 he rniation and stenosis. Has started therapies. PT reports two-person minimal assistance bed mobility and transfers and standing. Truncal ataxia. OT reports supervision for feeding, minimal assistance for grooming, moderate assistance for upper dressing, total assist for lower dressing and maximal assistance for bathing. Speech therapy assessing patient. Previous functional history as elicited from patient: 32-year-old right-handed female who is lives and 2 floor home, 3 kids at home. His homemaker and indeed previously independent with cooking, laundry, driving, standing shower a nd gait without device. PCP Dr. Kiet Stacy. Review of Systems Review of systems: ENT: Denies sneezes or discharge. Eyes: Denies discharge or photophobia. Cardiac: Denies chest pain or palpitation. Pulmonary: Denies cough or shortness of breath. Breast: Denies discharge or lumps. Gastrointestinal: Denies nausea, emesis, constipation, diarrhea. Genitourinary: Denies discharge or frequency. Musculoskeletal: Denies muscle or bone aches. Neurologic: Left-sided weakness and numbness. Endocrine: Denies shakes or sweats. Oncology: Denies cancers. Dermatologic: Denies rash, itching, pruritus. ALLERGY/immunology: Denies sneezes, rashes. Past Medical History Past Medical History: No Reported History Additional Past Medical History / Comment(s): she had pre-eclampsia (3 births)(hypertension). History of Any Multi-Drug Resistant Organisms: None Reported Past Surgical History: Section, Cholecystectomy, Tonsillectomy Past Anesthesia/Blood Transfusion Reactions: Previous Problems w/ Anesthesia Additional Past Anesthesia/Blood Transfusion Reaction / Comm: HAD TO HAVE BLOOD TRANSFUSION WITH first c/s, took long time to come out-"they had to give me something to reverse the anesthesia" Past Psychological History: No Psychological Hx Reported Smoking Status: Never smoker Past Alcohol Use History: None Reported Past Drug Use History: None Reported - Past Family History Mother Family Medical History: No Reported History Medications and Allergies Home Medications Medication Instructions Recorded Confirmed Type Albuterol Inhaler [Ventolin Hfa 2 puff INHALATION RT-Q6H PRN 11/03/20 07/03/22 History Inhaler] Multivitamins, Thera [Multivitamin 1 tab PO DAILY 11/03/20 07/03/22 History (formulary)] Beclomethasone Dip 80 Mcg/Puff 1 puff INHALATION RT-BID PRN 07/03/22 07/03/22 History [Qvar 80 mcg] Dextroamphetamine/Amphetamine 20 mg PO BID 07/03/22 07/03/22 History [Adderall 20 mg Tablet] Allergies Allergy/AdvReac Type Severity Reaction Status Date / Time No Known Allergies Allergy Verified 07/03/22 22:05 Physical Exam Vitals: Vital Signs Temp Pulse Resp BP Pulse Ox 07/05/22 04:00 98.0 F 82 16 130/84 98 07/04/22 23:54 98.3 F 84 16 138/87 98 07/04/22 20:00 98.5 F 73 18 145/94 97 07/04/22 16:13 98.8 F 88 14 137/81 99 07/04/22 11:53 98.3 F 84 12 122/76 97 07/04/22 08:30 97.8 F 83 16 127/74 98 Intake and Output 07/04/22 07/04/22 07/05/22 14:59 22:59 06:59 Intake Total 180 480 Output Total 671 863 7369 Balance -320 -200 -928 Intake: Oral 180 480 Output: Urine 166 874 7444 Post Void Residual 358 Other: Voiding Method Bedpan Skin: Good color, texture, turgor. General: Thin build and comfortable appearance. Head: Normocephalic, atraumatic. Eyes: Symmetric. Pupils equal round. Ears: Symmetric. Hearing within normal limits. Mouth: Clear. Neck: Supple. Carotid without bruit. Cardiac: Regular rate and rhythm. Lungs: Clear anteriorly and posteriorly. Abdomen: Soft active nontender. Extremities: Normal tone. Neurological: Mental status: Alert, cooperative, pleasant. Cranial nerves: Symmetric facial tone and trapezius. Motor: Normal strength and isolation right side. Left side poor. Sensation: Intact right side. DTRs: Symmetric and equal throughout. Mobility: And did not attempt to sit or stand as early a.m. Results CBC & Chem 7: 07/03/22 19:50 07/03/22 19:50 Labs: Abnormal Lab Results - Last 24 Hours (Table) 07/04/22 07/04/22 07/04/22 Range/Units 06:12 09:50 12:56 POC Glucose (mg/dL) 120 H (70-110) mg/dL HDL Cholesterol 60.90 H (40.00-60.00) mg/dL Ur Amphetamines Screen Detected H (NotDetected) U Benzodiazepines Scrn Detected H (NotDetected) 07/04/22 Range/Units 20:09 POC Glucose (mg/dL) 151 H (70-110) mg/dL HDL Cholesterol (40.00-60.00) mg/dL Ur Amphetamines Screen (NotDetected) U Benzodiazepines Scrn (NotDetected) Microbiology - Last 24 Hours (Table) 07/04/22 12:57 Urine Culture - Preliminary Urine,Voided Assessment and Plan (1) Cerebrovascular accident (CVA) Current Visit: Yes Status: Acute Code(s): I63.9 - CEREBRAL INFARCTION, UNSPECIFIED SNOMED Code(s): 832678440 (2) Left-sided weakness Current Visit: Yes Status: Acute Code(s): R53.1 - WEAKNESS SNOMED Code(s): 230511578 Plan: Comments and plan: At this time I would agree it is much more likely the patient appears to have suffered stroke with left hemiplegia and cervical spine disease and left hemiparesthesias. Management, the patient does have left hemiparesthesias and is quite young individual. Purpose of consult was for inpatient rehab and will would agree that there would be benefit for RPR. This was discussed with patient seems agreeable. Of course pending insurance authorization.
[2022-07-05 06:05] LABS: Glucose,Whole Blood 156 mg/dL (70-110)
[2022-07-05] MEDS: INSULIN ASPART (NovoLOG) 100 UNIT/ML VIAL SQ SCH ×4 (06:28→20:28)
[2022-07-05] MEDS: ONDANSETRON 4 MG/2 ML VIAL IVP PRN (06:32)
[2022-07-05] MEDS: SODIUM CHLORIDE 0.9% 1,000 ML IV SCH ×2 (06:35→23:17)
[2022-07-05] MEDS: NON FORMULARY DRUG (Dextroamphetamine/Amphetamine [Adderall 20 Mg Tablet] 20 MG Tablet) PO SCH ×2 (06:37→17:06)
[2022-07-05] MEDS: ACETAMINOPHEN TAB 325 MG TAB PO PRN (07:00)
[2022-07-05] MEDS: ALBUTEROL NEBULIZED 2.5 MG/3 ML INHALATION PRN (07:10)
[2022-07-05] MEDS: ASPIRIN 81 MG PO SCH (08:17)
[2022-07-05] MEDS: HEPARIN SODIUM,PORCINE/PF 5,000 UNIT/0.5 ML SYRINGE SQ SCH ×3 (08:17→23:17)
[2022-07-05] MEDS: TICAGRELOR 90 MG TAB PO SCH ×2 (08:17→20:28)
[2022-07-05] MEDS: methylPREDNISolone SOD SUCCI 40 MG/ML 1 ML VIAL IV SCH ×2 (08:17→17:06)
[2022-07-05 11:53] LABS: Glucose,Whole Blood 129 mg/dL (70-110)
--- NOTE | 2022-07-05 13:18 | P.PN ---
Progress Note - Text Progress Note Date: 07/05/22 Orthopedic spine: History of present illness: Patient is a very pleasant 32-year-old female who is seen and examined at the bedside with her father present. Since being seen and examined yesterday by Dr. Travon Walsh he has not had any improvement of her symptoms. She previously presented to the chiropractor on 07/03/2022 for further evaluation. After manipulation of her cervical spine she felt a sudden change at her neck and the left side of her body. She states she was unable to ambulate out of the chiropractic office. She is brought to [facility] for further evaluation. Since that time she has had profound weakness with her left upper extremity and left lower extremity. She had some facial droop at that time. She has undergone multiple imaging modalities during her admission to the hospital. She is not experiencing any right upper extremity or lower extremity weakness. Today she states she is speaking without difficulty. Patient is continuing to be seen by medicine and neurology. She states prior to this i ncident she was working full duties without difficulty and [facility]. She states she does have a different sensation with palpation over her left foot. She states prior to the incident at the chiropractic office she was normal and performed all her regular activities of daily living without any significant difficulty. Patient's father states they're planning to obtain her records and have this information transferred to a neurosurgeon who is familiar with the family who is at [facility]. Physical exam: Patient is awake, alert, and oriented 3 Vital signs stable Good chest excursion with deep inspiration and expiration Abdomen soft nontender Examination of the cervical spine reveals skin is intact with no abrasions, lacerations, or bruises; no erythema, purulence or signs of infection Full range of motion of the cervical spine with adequate flexion, extension, and bilateral rotation Patient has significant difficulty with active range of motion of her entire left upper extremity Patient is unable to make a fist on the left Ware Tester strength, thumb strength, interosseous strength, biceps strength, triceps strength, and shoulder strength positive sustained on the right Upper extremity strength 5/5 on the right Hoffmans sign negative upper extremity bilaterally No signs or symptoms of DVT; no calf pain Dorsiflexion, plantarflexion, and extensor hallucis longus positive sustained on the right Patient has profound weakness of the left lower extremity Patient is able to lift her left lower extremity off the bed without difficulty Patient has significant difficulty performing active dorsiflexion and plantarflexion on the left Straight leg test negative bilateral lower extremities Negative Lasegue's test bilaterally No signs or symptoms of DVT; no calf pain Vascularly intact Patient describes different sensation with palpation over the left foot as compared to the right Pertinent studies: Head MRI and neck MRA taken on 07/04/2022: No significant focal stenosis or dissection in the common or internal carotid arteries bilaterally; no significant focal stenosis or aneurysm at the level of the [place] Brain and cervical MRI taken on 07/04/2022: Retrospectively there is a focus of questionable restricted diffusion within the right anterior medulla which may represent artifact however cannot exclude acute ischemia; C5-6 left paracentral disc herniation resulting in mild left neural foraminal stenosis without central stenosis Assessment: Acute profound left sided weakness at the left upper extremity and lower extremity with facial droop on the left after incident with chiropractic cervical manipulation Retrospectively there is a focus of questionable restricted diffusion within the right anterior medulla which may represent artifact however cannot exclude acute ischemia C5-6 left paracentral disc herniation resulting in mild left neural foraminal stenosis Plan: 1. Patient has been experiencing acute profound left sided weakness at the left upper extremity and lower extremity with facial droop on the left after incident with chiropractic cervical manipulation. MRI imaging of the brain and cervical spine was performed. Brain MRI was reviewed by neurology and an addendum was posted which states retrospectively there is a focus of questionable restricted diffusion within the right anterior medulla which may represent artifact however cannot exclude acute ischemia. She is currently undergoing further evaluation with neurology. Cervical MRI showed evidence of C5-6 left paracentral disc herniation resulting in mild left neural foraminal stenosis. We did discuss that the findings found at the level of C5-6 do not correlate well in regards to her profound left upper extremity lower extremity weakness and her previous but improved facial droop. Clinically, the patient has strokelike symptoms with her acute onset profound left upper extremity lower extremity weakness. We did discuss we would not plan for any acute surgical intervention in regards to her cervical spine as there are not indications in which surgical intervention would provide any significant improvement of her symptoms from a cervical spine standpoint. This was discussed in detail with the patient and her father. We strongly recommended that she continue with further evaluation with neurology. Her father states they're planning for her imaging and records to be sent to a neurosurgeon who is familiar with the family at [facility]. At this time, we would not plan for further treatment or evaluation in regards to her cervical spine. She may follow-up with us in outpatient setting on an as-needed basis in regards to her cervical spine. 2. Patient will continue to be seen and examined by medicine and neurology
--- NOTE | 2022-07-05 13:18 | P.PN ---
Subjective Progress Note Date: 07/05/22 The patient is seen at bedside and feels her left upper extremity weakness is worse today but otherwise feels her dizziness and nausea is improving compared to initial presentation. Otherwise denies of any other new neurological issues. She is more awake today. Objective - Vital Signs Vital signs: Vital Signs Temp 97.6 F 07/05/22 08:00 Pulse 91 07/05/22 12:00 Resp 16 07/05/22 12:00 BP 151/88 07/05/22 12:00 Pulse Ox 99 07/05/22 12:00 FiO2 Intake & Output 07/04/22 07/05/22 07/05/22 18:59 06:59 18:59 Intake Total 180 1680 Output Total 700 1408 Balance -520 272 Intake: Intake, IV Titration 1200 Amount Sodium Chloride 0.9% 1, 1200 000 ml @ 100 mls/hr IV . Q10H NANCY Rx#:[id number] Oral 180 480 Output: Urine 700 1050 Post Void Residual 358 Other: Voiding Method Bedpan Bedpan - Exam GENERAL: The patient is lying in bed and is not in acute distress. NEUROLOGICAL: Limited since drowsy/received Ativan. Higher mental function: The patient is awake, alert, oriented to self, place and time. Is following simple commands. No aphasia or neglect. Cranial nerves: The pupils are round, equal and reactive to light. Visual snell are full to confrontation throughout. Extraocular movement is intact no nystagmus is noted. Facial sensation is decreased to touch over the left side. The facial strength is mild left lower facial weakness. Tongue is midline and moved [id number] without any difficulty. No dysarthria is noted. Motor: The strength is left side is proximallly 2-3 while distally 1-2. Left lower is 4+. Right side is 5/5. Increased tone over the left upper. Normal tone over the right. Normal bulk. Cerebellum: Normal finger to nose on the right but had hard time performing on left because of weakness. Normal heel to [place] bilaterally. Sensation: Sensation is decreased to touch over the left upper and normal over the lower. Reflexes (right/left): 3+ over the left side. Bilateral Patellar are 3+. Otherwise 2+ throughout. Plantars are mute bilaterally. SOME OF THE WORK-UP DURING THIS HOSPITAL VISIT CONSISTED OF: Lipid Panel: T, Cholestrolel 139, LDL 67, HDL 60 UD: +ve Amphetamine and Benzo (she received benzo in our facility). Urine HCG Not detected. CT of the head is reported as negative CT scan of the brain. I personally reviewed the CT of the head and is negative for any acute ischemia, subacute ischemia or any interpretable hemorrhage. CT cervical spine was reported as mild straightening of the cervical spine and could relate to spasm. No fracture seen. CT angiography of the head and neck was reported as negative MRI Brain and Cervical spine: Is reported as no evidence for acute CVA or mass. Mild left neurofaraminal stenosis at C5-C6 secondary to disc herniation. No central disc stenosis. I reviewed the images with radiologist which I felt there was a focus on right medulla but without correlation with ADC and reviewed it with radiologist who agreed and felt could be artifact but cannot exclude acute ischemia. MRA head and Neck is reported as no signficant focal stenosis or dissection in the common or internal carotid arteries bilaterally. No significant stenosis or aneurysm at the level of [place] of [place]. Carotid Duplex is reported as no hemodynamically significant stenosis of the proximal internal carotid arteries by Doppler criteria, an indirect measurement of carotid stenosis. 2D echo is reported as normal LV systolic function ejection fraction greater t otoole 60%. Redunant mitral valve leaflets. In body of report it is reported as normal left atrium. No mention of bubble even though I ordered it with bubble study. EKG is reported as sinus rhythm. Moderate T-wave abnormality, consider anterior ischemia. Abnormal EKG. - Labs CBC & Chem 7: 07/03/22 19:50 07/03/22 19:50 Labs: Abnormal Lab Results - Last 24 Hours (Table) 07/04/22 07/04/22 07/04/22 Range/Units 09:50 09:50 12:56 POC Glucose (mg/dL) (70-110) mg/dL HDL Cholesterol 60.90 H (40.00-60.00) mg/dL Procalcitonin <0.02 L (0.02-0.09) ng/mL Ur Amphetamines Screen Detected H (NotDetected) U Benzodiazepines Scrn Detected H (NotDetected) 07/04/22 07/05/22 07/05/22 Range/Units 20:09 06:03 11:51 POC Glucose (mg/dL) 151 H 156 H 129 H (70-110) mg/dL HDL Cholesterol (40.00-60.00) mg/dL Procalcitonin (0.02-0.09) ng/mL Ur Amphetamines Screen (NotDetected) U Benzodiazepines Scrn (NotDetected) Microbiology - Last 24 Hours (Table) 07/04/22 12:57 Urine Culture - Preliminary Urine,Voided Assessment and Plan Assessment: This is a 32 year-old woman who was at chiropractor and had her neck manipulated on and immediately had left sided weakness, numbness, nausea and vomiting. Acute ischemic stroke Clinically and has questionable right anterior medullary focus on MRI Brain (had diffiusion restriction but did not correspond with ADC, that could be artifact but cannot rule out stroke). Her stroke is likely induced by chiropractor manipulation to neck. Mild left neuroforaminal stenosis at C5-C6 (but that would not explain her acute presentation) Acute urinary retention that could be result of acute stroke in brainstem Her slight leukocytosis is possibly reactive from her stroke (she is afebrile). Plan: I personally discussed the case with neuro-interventionalist (Dr. Wallace) regarding the case and he stated he reviewed the CTA head and neck. He also feels patient had a stroke and no intervention is needed as inpatient and recommend patient to follow-up as outpatient with him for consideration of diagnositic cerebral angiogram and no inpatient intervention is needed. He recommended to continue with ASA 81mg, Brilinta 90mg 1 tab bid and Lipitor 80mg qhs. The medication is to be continues for secondary stroke prophylaxis and will have patient to follow-up with neuro-interventional team as outpatient for modifyication of medication. I ordered a repeat CT head since has worsening of left upper extremity which is likely evolution of stroke. Primary team consulted Orthopedic surgery team for concern of cervical injury and they agree that this seems like stroke. Continue neuro-checks Continue cardiac monitoring PT, OT and DISTRICT BRANCH MANAGER are consulted Dr. Mars is consulted for inpatient rehab. Will defer the rest of medical management to the primary team. Patient to follow-up with neurologist within 1-2 weeks as outpatient and to follow-up with neuro-interventionalist ([phone]). The patient would benefit from inpatient rehab. The plan is discussed in detailed with the patient, her father (via phone) and primary attending. Total of 35 minutes is spend talking to family, reviewing labs. Jose E Rubio M.D. Neuro-Hospitalist Time with Patient: Greater than 30
--- NOTE | 2022-07-05 13:55 | CT ---
EXAMINATION TYPE: CT brain wo con CT DLP: 1062.4 mGycm, Automated exposure control for dose reduction was used. DATE OF EXAM: 07/05/2022 1:38 PM COMPARISON: MRI brain 07/04/2022 CLINICAL INDICATION:Female, 32 years old with history of stroke. Worsening left upper extremity, Lt upper ext weakness TECHNIQUE: Brain: Axial CT images of the brain were obtained with coronal and sagittal reformats created and rev iewed. Contrast used: None. Oral contrast used: None. FINDINGS: Brain: Extra-axial spaces: No abnormal extra-axial fluid collections. Ventricular system: Within normal limits Cerebral parenchyma: No acute intraparenchymal hemorrhage or mass effect. The torres-white junction is well differentiated. Cerebellum: Unremarkable. Mass effect: No evidence of midline shift. Intracranial vasculature: unremarkable Soft tissues: Normal. Calvarium/osseous structures: No depressed skull fracture. Paranasal sinuses and mastoid air cells: Mild scattered paranasal sinus disease. Visualized orbits: Orbital contents are intact. IMPRESSION: No acute intracranial process.
[2022-07-05 16:56] LABS: Glucose,Whole Blood 138 mg/dL (70-110)
[2022-07-05 19:48] LABS: Glucose,Whole Blood 129 mg/dL (70-110)
--- NOTE | 2022-07-05 19:55 | P.PN ---
Progress Note - Text Progress Note Date: 07/05/22 Chief Complaint: Left-sided weakness I'm rounding for Dr. Kiet Stacy This is a pleasant 32-year-old patient who follows with Dr. Kiet Stacy. Patient normally good health. Patient somewhat sleepy this morning he did receive some sedated. History is obtained by the at the bedside. Also present the patient's cousin and her . Patient though wakes up and then dozes off. Patient yesterday had gone to a chiropractor telephone #[phone]. She had some neck and back manipulation done. When she came out of the room she was leaning to the left side. As she was weak on that side. Also facial asymmetry. Initial computed tomography scan was unremarkable. ER physician did activate her "stroke. Did discuss with . In the ER she complained of left upper and lower extremity numbness. Speech was clear. Assess some impro vement in the ER TPA was not given. Lower extremity symptoms are better. CT angiogram was unremarkable. Patient is put on aspirin. Brillintal for stroke. Neurology was consulted. July 05: Patient is having more stiffness of the left upper extremity. left facial weakness. Very slight neck discomfort. Eating fine. Discussed with Dr. Rubio from neurology. He thinks this is a very small brainstem stroke. Discussed with from orthopedics. He feels this is also a central cause. Spinal cord looks fine. Discussed with the patient and . PTOT in the case. Active Medications Acetaminophen (Acetaminophen Tab 325 Mg Tab) 650 mg PO Q6HR PRN PRN Reason: Pain Last Admin: 07/05/22 07:00 Dose: 650 mg Albuterol Sulfate (Albuterol Nebulized 2.5 Mg/3 Ml) 2.5 mg INHALATION RT-Q6H PRN PRN Reason: Shortness Of Breath Or Wheezing Last Admin: 07/05/22 07:10 Dose: 2.5 mg Aspirin (Aspirin 81 Mg) 81 mg PO DAILY [facility] Last Admin: 07/05/22 08:17 Dose: 81 mg Atorvastatin Calcium (Atorvastatin 80 Mg Tab) 80 mg PO HS [facility] Last Admin: 07/04/22 20:50 Dose: 80 mg Dextrose/Water (Dextrose 50% Syringe 50 Ml) 25 ml IVP PER PROTOCOL PRN; Protoc ol PRN Reason: Hypoglycemia Dextrose/Water (Dextrose 50% Syringe 50 Ml) 50 ml IVP PER PROTOCOL PRN; Protocol PRN Reason: Hypoglycemia Heparin Sodium (Porcine) (Heparin Sodium,Porcine/Pf 5,000 Unit/0.5 Ml Syringe) 5,000 unit SQ Q8HR [facility] Last Admin: 07/05/22 17:06 Dose: 5,000 unit Sodium Chloride (Saline 0.9%) 1,000 mls @ 100 mls/hr IV .Q10H [facility] Last Admin: 07/05/22 06:35 Dose: 100 mls/hr Insulin Aspart (Insulin Aspart (Novolog) 100 Unit/Ml Vial) 0 unit SQ ACHS [facility]; Protocol Last Admin: 07/05/22 17:07 Dose: Not Given Lorazepam (Lorazepam 2 Mg/Ml Inj) 0.5 mg IV Q4HR PRN PRN Reason: Anxiety Last Admin: 07/04/22 06:04 Dose: 0.5 mg Meclizine HCl (Meclizine 12.5 Mg Tab) 12.5 mg PO Q8HR PRN PRN Reason: Vertigo Last Admin: 07/05/22 13:47 Dose: 12.5 mg Non-Formulary Medication (Dextroamphetamine/Amphetamine [Adderall 20 Mg Tablet]) 20 mg PO AC-BID [facility] Last Admin: 07/05/22 17:06 Dose: Not Given Ondansetron HCl (Ondansetron 4 Mg/2 Ml Vial) 4 mg IVP Q6HR PRN PRN Reason: Nausea And Vomiting Last Admin: 07/05/22 06:32 Dose: 4 mg Quetiapine Fumarate (Quetiapine 25 Mg Tab) 25 mg PO BID PRN PRN Reason: Agitation or Acute Anxiety Last Admin: 07/05/22 01:42 Dose: 25 mg Ticagrelor (Ticagrelor 90 Mg Tab) 90 mg PO BID [facility] Past medical history to include: Preeclampsia with 3 pregnancies Social history: 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 No smoking or alcohol. No recreational drugs reported. Physical examination: VITAL SIGNS: 97.6, 99, 16, 1 21 x 69, 76% room air GENERAL: Up in a recliner EYES: Pupils equal. Conjunctiva normal. HEENT: External appearance of nose and ears normal, oral cavity grossly normal. NECK: JVD not raised; masses not palpable. HEART: First and second heart sounds are normal; no edema. LUNGS: Respiratory rate normal; clear to auscultation. ABDOMEN: Soft, nontender, liver spleen not palpable, no masses palpable. PSYCH: Sleepy but does wake up answered questions then dozes offl. MUSCULOSKELETAL:No Clubbing/cyanosis;muscles-grossly intact NEUROLOGICAL: Mouth to the right. decreased sensation on the left face. Decreased power in the left arm and left leg-3/5. Hyperreflexia on the left side. Some decrease in sensation. Increased rigidity left arm.. INVESTIGATIONS, reviewed in the clinical context: Head MRI/neck MRA: Unremarkable Brain cervical MRI: Focus of questionable restricted diffusion without definite correlate on ADC map within the right anterior Medela this may represent artifact however cannot exclude acute ischemia White count 16.4 hemoglobin 14.1 platelets 326 sodium 135 progression 3.4 creatinine 0.58 Urine drug screen positive for amphetamine, benzodiazepine. Urine hCG: Not detected EKG tracing personally reviewed by me-no sinus rhythm. Rate 75. Head cervical spine without contrast: Negative no fracture. CT angiogram of the head and neck: Negative no dissection reported. Computed tomography scan brain: Unremarkable Assessment and plan: -Acute stroke in the right medula . Aspirin,Brillinta. Lipitor -Hypokalemia Replace potassium -Acute gait dysfunction from stroke PTOT -Intermittent asthma Qvar and albuterol when necessary -ADHD Adderall 20 mg twice a day Care was discussed length with the patient has been, after discussion previously with Dr. Rubio from neurology and from orthopedics. PTOT. Continue other medications. Total time spent today about 45 minutes with over 30 minutes of discussion.
[2022-07-05] MEDS: ATORVASTATIN 80 MG TAB PO SCH (20:28)
--- NOTE | 2022-07-05 22:08 | MR ---
EXAMINATION TYPE: MR brain wo con DATE OF EXAM: 07/05/2022 COMPARISON: Yesterday HISTORY: Stroke - Thin slices DWI thru the brainstem Multiplanar multiecho imaging of the brain with no contrast. These are diffusion-weighted images. There is 17 x 7 mm area of increased signal in the medulla on the right side on the diffusion images. This could be an acute infarct. This is best seen on image 43. The ventricles have normal size. Diffusion images of the cervical spine show no increased signal in t he cervical spinal cord. No evidence of intracranial hemorrhage. IMPRESSION: There is evidence for an acute infarct on the right side of the medulla as above. No mass effect.
[2022-07-06] MEDS: QUEtiapine 25 MG TAB PO PRN ×2 (01:03→23:17)
[2022-07-06] MEDS: NON FORMULARY DRUG (Dextroamphetamine/Amphetamine [Adderall 20 Mg Tablet] 20 MG Tablet) PO SCH ×2 (04:43→16:54)
[2022-07-06 05:30] LABS: Appearance,Urine Turbid (Clear); Bacteria,Urine Moderate /hpf; Bilirubin,Urine Negative (Negative); Blood,Urine Large (Negative); Color,Urine Yellow; Glucose,Urine (UA) Negative (Negative); Ketones,Urine Negative (Negative); Leukocyte Esterase,Urine Large (Negative); Mucus,Urine Few /hpf; Nitrite,Urine Negative (Negative); PH, Urine 6.5 (5.0-8.0); Protein,Urine 1+ (Negative); RBC,Urine 103 /hpf (0-5); Specific Gravity,Urine 1.018 (1.001-1.035); Squamous Epithelial Cell,Urine 3 /hpf (0-4); WBC,Urine >182 /hpf (0-5)
[2022-07-06 06:06] LABS: Glucose,Whole Blood 97 mg/dL (70-110)
[2022-07-06] MEDS: INSULIN ASPART (NovoLOG) 100 UNIT/ML VIAL SQ SCH ×3 (06:11→17:13)
[2022-07-06] MEDS: ACETAMINOPHEN TAB 325 MG TAB PO PRN (06:33)
[2022-07-06] MEDS: TICAGRELOR 90 MG TAB PO SCH ×2 (08:56→22:05)
[2022-07-06] MEDS: ASPIRIN 81 MG PO SCH (08:56)
[2022-07-06] MEDS: HEPARIN SODIUM,PORCINE/PF 5,000 UNIT/0.5 ML SYRINGE SQ SCH ×2 (08:56→17:09)
[2022-07-06] MEDS ORDERED: CLOPIDOGREL 75 MG TAB PO SCH (09:00)
[2022-07-06 11:54] LABS: Glucose,Whole Blood 94 mg/dL (70-110)
[2022-07-06 12:28] LABS: Basophils % (A) 0 %; Eosinophils % (A) 0 %; HCT 40.8 % (34.0-46.0); HGB 13.7 gm/dL (11.4-16.0); Lymphocytes # (A) 1.9 k/uL (1.0-4.8); Lymphocytes % (A) 14 %; MCH 30.7 pg (25.0-35.0); MCHC 33.6 g/dL (31.0-37.0); MCV 91.3 fL (80.0-100.0); Mean Platelet Volume 7.9; Monocytes # (A) 0.9 k/uL (0-1.0); Monocytes % (A) 7 %; Neutrophils # (A) 10.3 k/uL (1.3-7.7); Neutrophils % (A) 78 %; Platelet Count 312 k/uL (150-450); RBC 4.47 m/uL (3.80-5.40); RDW 13.2 % (11.5-15.5); WBC 13.3 k/uL (3.8-10.6)
[2022-07-06] MEDS: CEPHALEXIN 500 MG CAP PO SCH ×4 (13:30→22:05)
[2022-07-06] MEDS: PHENAZOPYRIDINE 200 MG TAB PO SCH ×2 (13:30→17:10)
--- NOTE | 2022-07-06 14:37 | P.PN ---
Subjective Progress Note Date: 07/06/22 The patient is seen at bedside and stated she is slightly better today, moving the left lower extremity better and has slight more sensation on the left leg. Otherwise denies of any new neurological issues. It seems the primary team ordered a repeat MRI Brain since he still had concerns about her condition. And the MRI is reported as evidence for acute infarct over the right side of medulla as above. No mass effect. I personally reviewed the MRI and I agree with the finding Objective - Vital Signs Vital signs: Vital Signs Temp 98.0 F 07/06/22 04:00 Pulse 96 07/06/22 04:00 Resp 16 07/06/22 04:00 BP 135/80 07/06/22 04:00 Pulse Ox 99 07/06/22 04:00 FiO2 Intake & Output 07/05/22 07/06/22 07/06/22 18:59 06:59 18:59 Intake Total 240 Output Total 650 1250 200 Balance -650 -1010 -200 Intake: Oral 240 Output: Urine 650 1250 200 Other: Voiding Method Bedside Commode Bedside Commode Bedpan # Voids 1 - Exam GENERAL: The patient is lying in bed and is not in acute distress. NEUROLOGICAL: Higher mental function: The patient is awake, alert, oriented to self, place and time. Is following simple commands. No aphasia or neglect. Cranial nerves: The pupils are round, equal and reactive to light. Visual snell are full to confrontation throughout. Extraocular movement is intact no nystagmus is noted. Facial sensation is decreased to touch over the left side. The facial strength is mild left lower facial weakness. Tongue is midline and moved [id number] without any difficulty. No dysarthria is noted. Motor: The strength is left side is proximallly 2-3 (more two) otherwise distal is 0-1 and left hand 1 with finger flexion is 1-2. Has increase tone over the left upper. Left lower is 4+. Normal tone over the right. Normal bulk. Cerebellum: Normal finger to nose on the right but had hard time performing on left because of weakness. Normal heel to bahena bilaterally. Sensation: Sensation is decreased to touch over the left upper and normal over the lower. Reflexes (right/left): 3+ over the left side. Bilateral Patellar are 3+. Otherwise 2+ throughout. Plantars are mute bilaterally. SOME OF THE WORK-UP DURING THIS HOSPITAL VISIT CONSISTED OF: Lipid Panel: T, Cholestrolel 139, LDL 67, HDL 60 UD: +ve Amphetamine and Benzo (she received benzo in our facility). Urine HCG Not detected. CT of the head is reported as negative CT scan of the brain. I personally reviewed the CT of the head and is negative for any acute ischemia, subacute ischemia or any interpretable hemorrhage. CT cervical spine was reported as mild straightening of the cervical spine and could relate to spasm. No fracture seen. CT angiography of the head and neck was reported as negative MRI Brain and Cervical spine: Is reported as no evidence for acute CVA or mass. Mild left neurofaraminal stenosis at C5-C6 secondary to disc herniation. No central disc stenosis. I reviewed the images with radiologist which I felt there was a focus on right medulla but without correlation with ADC and reviewed it with radiologist who agreed and felt could be artifact but cannot exclude acute ischemia. MRA head and Neck is reported as no signficant focal stenosis or dissection in the common or internal carotid arteries bilaterally. No significant stenosis or aneurysm at the level of [place] of [place]. Carotid Duplex is reported as no hemodynamically significant stenosis of the proximal internal carotid arteries by Doppler criteria, an indirect measurement of carotid stenosis. 2D echo is reported as normal LV systolic function ejection fraction greater joni n 60%. Redunant mitral valve leaflets. In body of report it is reported as normal left atrium. No mention of bubble even though I ordered it with bubble study. EKG is reported as sinus rhythm. Moderate T-wave abnormality, consider anterior ischemia. Abnormal EKG. Repeat CT of the head on 07/05/2022 was reported as no acute intracranial process. Repeat MRI Brain (07/05/2022) is reported as evidence for acute infarct over the right side of medulla as above. No mass effect. I personally reviewed the MRI and I agree with the finding - Labs CBC & Chem 7: 07/06/22 12:15 07/03/22 19:50 Labs: Abnormal Lab Results - Last 24 Hours (Table) 07/05/22 07/05/22 07/06/22 Range/Units 16:54 19:46 05:00 WBC (3.8-10.6) k/uL Neutrophils # (1.3-7.7) k/uL POC Glucose (mg/dL) 138 H 129 H (70-110) mg/dL Urine Appearance Turbid H (Clear) Urine Protein 1+ H (Negative) Urine Blood Large H (Negative) Ur Leukocyte Esterase Large H (Negative) Urine RBC 103 H (0-5) /hpf Urine WBC >182 H (0-5) /hpf Urine WBC Clumps Many H (None) /hpf Urine Bacteria Moderate H (None) /hpf Urine Mucus Few H (None) /hpf 07/06/22 Range/Units 12:15 WBC 13.3 H (3.8-10.6) k/uL Neutrophils # 10.3 H (1.3-7.7) k/uL POC Glucose (mg/dL) (70-110) mg/dL Urine Appearance (Clear) Urine Protein (Negative) Urine Blood (Negative) Ur Leukocyte Esterase (Negative) Urine RBC (0-5) /hpf Urine WBC (0-5) /hpf Urine WBC Clumps (None) /hpf Urine Bacteria (None) /hpf Urine Mucus (None) /hpf Microbiology - Last 24 Hours (Table) 07/04/22 12:57 Urine Culture - Preliminary Urine,Voided Gram Neg Bacilli Assessment and Plan Assessment: This is a 32 year-old woman who was at chiropractor and had her neck manipulated on and immediately had left sided weakness, numbness, nausea and vomiting. Acute ischemic stroke Clinically and radiographically (has right medullary stroke). Seems to be induced by her neck being manipulated. Mild left neuroforaminal stenosis at C5-C6 (but that would not explain her acute presentation) Acute urinary retention seem result of acute stroke in brainstem Her slight leukocytosis is possibly reactive from her stroke (she is afebrile). Plan: I personally discussed the case with neuro-interventionalist (Dr. Wallace) on 07/05/2022 regarding the case and he stated he reviewed the CTA head and neck. He feels patient had a stroke and no intervention is needed as inpatient and recommend patient to follow-up as outpatient with him for consideration of diagnositic cerebral angiogram and no inpatient intervention is needed and no transfer is needed. He recommended to continue with ASA 81mg, Brilinta 90mg 1 tab bid and Lipitor 80mg qhs. The medication is to be continues for secondary stroke prophylaxis and will have patient to follow-up with neuro-interventional team as outpatient for modifyication of medication. Repeat MRI Brain (07/05/2022) is reported as evidence for acute infarct over the right side of medulla as above. No mass effect. I personally reviewed the MRI and I agree with the finding Primary team consulted Orthopedic surgery team for concern of cervical injury and they agree that this seems like stroke. Continue neuro-checks Continue cardiac monitoring PT, OT and INSEAM TRIMMING MACHINE OPERATOR are consulted Dr. Mars is consulted for inpatient rehab. Will defer the rest of medical management to the primary team. Patient to follow-up with neurologist within 1-2 weeks as outpatient and to follow-up with neuro-interventionalist ([phone]). The patient would benefit from inpatient rehab. The plan is discussed in detailed with the patient, primary team and nurse. No additional work-up is needed and pending to be discharged to inpatient rehab. Jose E Rubio M.D. Neuro-Hospitalist Time with Patient: Less than 30
[2022-07-06 16:52] LABS: Glucose,Whole Blood 99 mg/dL (70-110)
--- NOTE | 2022-07-06 17:54 | P.PN ---
Progress Note - Text Progress Note Date: 07/06/22 Chief Complaint: Left-sided weakness I'm rounding for Dr. Kiet Stacy This is a pleasant 32-year-old patient who follows with Dr. Kiet Stacy. Patient normally good health. Patient somewhat sleepy this morning he did receive some sedated. History is obtained by the at the bedside. Also present the patient's cousin and her . Patient though wakes up and then dozes off. Patient yesterday had gone to a chiropractor telephone #[phone]. She had some neck and back manipulation done. When she came out of the room she was leaning to the left side. As she was weak on that side. Also facial asymmetry. Initial computed tomography scan was unremarkable. ER physician did activate her "stroke. Did discuss with . In the ER she complained of left upper and lower extremity numbness. Speech was clear. Assess some impro vement in the ER TPA was not given. Lower extremity symptoms are better. CT angiogram was unremarkable. Patient is put on aspirin. Brillintal for stroke. Neurology was consulted. July 05: Patient is having more stiffness of the left upper extremity. left facial weakness. Very slight neck discomfort. Eating fine. Discussed with Dr. Rubio from neurology. He thinks this is a very small brainstem stroke. Discussed with from orthopedics. He feels this is also a central cause. Spinal cord looks fine. Discussed with the patient and . PTOT in the case. July 06: Yesterday evening I spoke to the radiologist Dr. Thurman and his colleague radiologist. Current MRI/and angiogram proximal portion around C1 could not be well visualized. It was decided to do 1 mm cut. He called the back last night that the stroke area is more defined oh. There was no vertebral dissection right side. Told the right vertebral artery was smaller. I discussed this with the patient. Current treatment plan is to continue. Some improvement in the left arm and left leg. No trouble swallowing. Active Medications Acetaminophen (Acetaminophen Tab 325 Mg Tab) 650 mg PO Q6HR PRN PRN Reason: Pain Last Admin: 07/06/22 06:33 Dose: 650 mg Albuterol Sulfate (Albuterol Nebulized 2.5 Mg/3 Ml) 2.5 mg INHALATION RT-Q6H PRN PRN Reason: Shortness Of Breath Or Wheezing Last Admin: 07/05/22 07:10 Dose: 2.5 mg Aspirin (Aspirin 81 Mg) 81 mg PO DAILY [facility] Last Admin: 07/06/22 08:56 Dose: 81 mg Atorvastatin Calcium (Atorvastatin 80 Mg Tab) 80 mg PO HS [facility] Last Admin: 07/05/22 20:28 Dose: 80 mg Cephalexin (Cephalexin 500 Mg Cap) 500 mg PO QID [facility]; Protocol Last Admin: 07/06/22 17:09 Dose: 500 mg Dextrose/Water (Dextrose 50% Syringe 50 Ml) 25 ml IVP PER PROTOCOL PRN; Protocol PRN Reason: Hypoglycemia Dextrose/Water (Dextrose 50% Syringe 50 Ml) 50 ml IVP PER PROTOCOL PRN; Protocol PRN Reason: Hypoglycemia Heparin Sodium (Porcine) (Heparin Sodium,Porcine/Pf 5,000 Unit/0.5 Ml Syringe) 5,000 unit SQ Q8HR [facility] Last Admin: 07/06/22 17:09 Dose: 5,000 unit Sodium Chloride (Saline 0.9%) 1,000 mls @ 100 mls/hr IV .Q10H [facility] Last Admin: 07/05/22 23:17 Dose: Not Given Insulin Aspart (Insulin Aspart (Novolog) 100 Unit/Ml Vial) 0 unit SQ ACHS [facility]; Protocol Last Admin: 07/06/22 17:13 Dose: Not Given Lorazepam (Lorazepam 2 Mg/Ml Inj) 0.5 mg IV Q4HR PRN PRN Reason: Anxiety Last Admin: 07/04/22 06:04 Dose: 0.5 mg Meclizine HCl (Meclizine 12.5 Mg Tab) 12.5 mg PO Q8HR PRN PRN Reason: Vertigo Last Admin: 07/05/22 13:47 Dose: 12.5 mg Non-Formulary Medication (Dextroamphetamine/Amphetamine [Adderall 20 Mg Tablet]) 20 mg PO AC-BID [facility] Last Admin: 07/06/22 16:54 Dose: Not Given Ondansetron HCl (Ondansetron 4 Mg/2 Ml Vial) 4 mg IVP Q6HR PRN PRN Reason: Nausea And Vomiting Last Admin: 07/05/22 06:32 Dose: 4 mg Phenazopyridine HCl (Phenazopyridine 200 Mg Tab) 200 mg PO TID [facility] Last Admin: 07/06/22 17:10 Dose: 200 mg Quetiapine Fumarate (Quetiapine 25 Mg Tab) 25 mg PO BID PRN PRN Reason: Agitation or Acute Anxiety Last Admin: 07/06/22 01:03 Dose: 25 mg Ticagrelor (Ticagrelor 90 Mg Tab) 90 mg PO BID [facility] Last Admin: 07/06/22 08:56 Dose: 90 mg Past medical history to include: Preeclampsia with 3 pregnancies Social history: 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 No smoking or alcohol. No recreational drugs reported. Physical examination: VITAL SIGNS: 97.9, 74, 18, 1:30/83, 100% room air GENERAL: Laying in bed, awake, comfortable EYES: Pupils equal. Conjunctiva normal. HEENT: External appearance of nose and ears normal, oral cavity grossly normal. NECK: JVD not raised; masses not palpable. HEART: First and second heart sounds are normal; no edema. LUNGS: Respiratory rate normal; clear to auscultation. ABDOMEN: Soft, nontender, liver spleen not palpable, no masses palpable. PSYCH: Sleepy but does wake up answered questions then dozes offl. MUSCULOSKELETAL:No Clubbing/cyanosis;muscles-grossly intact NEUROLOGICAL: Mouth to the right. decreased sensation on the left face. Decreased power in the left arm and left leg-3/5. Hyperreflexia on the left side. Some decrease in sensation persist. Increased rigidity left arm.. INVESTIGATIONS, reviewed in the clinical context: MRI of the brain repeat with thin slices DWI through the brainstem: 17 x 7 mm area of acute infarct in the medulla Head MRI/neck MRA: Unremarkable Brain cervical MRI: Focus of questionable restricted diffusion without definite correlate on ADC map within the right anterior Medela this may represent artifact however cannot exclude acute ischemia White count 16.4 hemoglobin 14.1 platelets 326 sodium 135 progression 3.4 creatinine 0.58 Urine drug screen positive for amphetamine, benzodiazepine. Urine hCG: Not detected EKG tracing personally reviewed by me-no sinus rhythm. Rate 75. Head cervical spine without contrast: Negative no fracture. CT angiogram of the head and neck: Negative no dissection reported. Computed tomography scan brain: Unremarkable Assessment and plan: -Acute stroke in the right medula . Aspirin,Brillinta. Lipitor -Right vertebral artery smaller than the left. With blood flow. -Hypokalemia Replace potassium -Acute gait dysfunction from stroke PTOT -Intermittent asthma Qvar and albuterol when necessary -ADHD Adderall 20 mg twice a day Care was discussed with the patient. PTOT space therapy to continue. Continue current medications. Pending rehab. Placement
[2022-07-06 20:35] LABS: Glucose,Whole Blood 91 mg/dL (70-110)
[2022-07-06] MEDS: ATORVASTATIN 80 MG TAB PO SCH (22:05)
[2022-07-06] MEDS: ALBUTEROL NEBULIZED 2.5 MG/3 ML INHALATION PRN (23:09)
[2022-07-07] MEDS: INSULIN ASPART (NovoLOG) 100 UNIT/ML VIAL SQ SCH ×5 (01:32→20:35)
[2022-07-07] MEDS: HEPARIN SODIUM,PORCINE/PF 5,000 UNIT/0.5 ML SYRINGE SQ SCH ×3 (01:33→17:49)
[2022-07-07] MEDS: PHENAZOPYRIDINE 200 MG TAB PO SCH ×4 (01:34→21:08)
[2022-07-07] MEDS: ACETAMINOPHEN TAB 325 MG TAB PO PRN (05:54)
[2022-07-07 06:12] LABS: Glucose,Whole Blood 93 mg/dL (70-110)
[2022-07-07] MEDS: NON FORMULARY DRUG (Dextroamphetamine/Amphetamine [Adderall 20 Mg Tablet] 20 MG Tablet) PO SCH ×2 (07:35→16:47)
[2022-07-07] MEDS: SODIUM CHLORIDE 0.9% 1,000 ML IV SCH ×2 (07:36→18:50)
[2022-07-07] MEDS: ASPIRIN 81 MG PO SCH (08:19)
[2022-07-07] MEDS: CEPHALEXIN 500 MG CAP PO SCH ×4 (08:20→21:07)
[2022-07-07] MEDS: TICAGRELOR 90 MG TAB PO SCH ×2 (08:20→21:07)
[2022-07-07] MEDS ORDERED: BACLOFEN 10 MG TAB PO PRN (11:09)
--- NOTE | 2022-07-07 11:12 | P.PN ---
Subjective Progress Note Date: 07/07/22 Patient is seen as accompanied with her father and patient stated that she feels her left lower extremity is improving compared to her initial presentation. She denies any further vomiting. She would have dizziness when she is moving around and some nausea but better compared to her initial presentation. She feels having a bit more sensation on the left side but still not to the back to baseline. Denies of any new neurological issues. The patient's father feels the she is more awake and alert compared to her initial presentation. She is able to urinate in the bathroom now much better than before. Patient stated that she was seeing a chiropractor for her lower back and this was her second session and she never had any neck manipulation in the past. She stated that she never asked for neck no manipulation but seems that was performed while she had her session and immediately have having neck manipulated she felt off sensation on the right of neck as "pop sensation". Objective - Vital Signs Vital signs: Vital Signs Temp 98.2 F 07/07/22 08:00 Pulse 75 07/07/22 08:00 Resp 18 07/07/22 08:00 BP 126/87 07/07/22 08:00 Pulse Ox 98 07/07/22 08:00 FiO2 Intake & Output 07/06/22 07/07/22 07/07/22 18:59 06:59 18:59 Output Total 200 200 Balance -200 -200 Output: Urine 200 200 Other: Voiding Method Bedside Commode Bedside Commode Bedpan Bedpan # Voids 1 - Exam GENERAL: The patient is lying in bed and is not in acute distress. NEUROLOGICAL: Higher mental function: The patient is awake, alert, oriented to self, place and time. Is following simple commands. No aphasia or neglect. Cranial nerves: The pupils are round, equal and reactive to light. Visual snell are full to confrontation throughout. Extraocular movement is intact no nystagmus is noted. Facial sensation is decreased to touch over the left side. The facial strength is mild left lower facial weakness. Tongue is midline and moved [id number] without any difficulty. No dysarthria is noted. Motor: The strength is left side is proximallly 2-3 (more two) otherwise distal is 0. Has increase tone over the left upper. Left lower is 4+ to 5-. Normal tone over the right. Normal bulk. Cerebellum: Normal finger to nose on the right but had hard time performing on left because of weakness. Normal heel to ba[place] bilaterally. Sensation: Sensation is decreased to touch over the left upper and normal over the lower. Reflexes (right/left): 3+ over the left side. Bilateral Patellar are 3+. Otherwise 2+ throughout. Plantars are mute bilaterally. SOME OF THE WORK-UP DURING THIS HOSPITAL VISIT CONSISTED OF: Lipid Panel: T, Cholestrolel 139, LDL 67, HDL 60 UD: +ve Amphetamine and Benzo (she received benzo in our facility). Urine HCG Not detected. CT of the head is reported as negative CT scan of the brain. I personally reviewed the CT of the head and is negative for any acute ischemia, subacute ischemia or any interpretable hemorrhage. CT cervical spine was reported as mild straightening of the cervical spine and could relate to spasm. No fracture seen. CT angiography of the head and neck was reported as negative MRI Brain and Cervical spine: Is reported as no evidence for acute CVA or mass. Mild left neurofaraminal stenosis at C5-C6 secondary to disc herniation. No dre tral disc stenosis. I reviewed the images with radiologist which I felt there was a focus on right medulla but without correlation with ADC and reviewed it with radiologist who agreed and felt could be artifact but cannot exclude acute ischemia. MRA head and Neck is reported as no signficant focal stenosis or dissection in the common or internal carotid arteries bilaterally. No significant stenosis or aneurysm at the level of [place]. Carotid Duplex is reported as no hemodynamically significant stenosis of the proximal internal carotid arteries by Doppler criteria, an indirect measurement of carotid stenosis. 2D echo is reported as normal LV systolic function ejection fraction greater than 60%. Redunant mitral valve leaflets. In body of report it is reported as normal left atrium. No mention of bubble even though I ordered it with bubble study. EKG is reported as sinus rhythm. Moderate T-wave abnormality, consider anterior ischemia. Abnormal EKG. Repeat CT of the head on 07/05/2022 was reported as no acute intracranial process. Repeat MRI Brain using thin cut slices (07/05/2022) is reported as evidence for acute infarct over the right side of medulla as above. No mass effect. I personally reviewed the MRI and I agree with the finding - Labs CBC & Chem 7: 07/06/22 12:15 07/03/22 19:50 Labs: Abnormal Lab Results - Last 24 Hours (Table) 07/06/22 Range/Units 12:15 WBC 13.3 H (3.8-10.6) k/uL Neutrophils # 10.3 H (1.3-7.7) k/uL Microbiology - Last 24 Hours (Table) 07/04/22 12:57 Urine Culture - Final Urine,Voided Escherichia coli Enterococcus faecalis Assessment and Plan Assessment: This is a 32 year-old woman who was at chiropractor and had her neck manipulated on and immediately had left sided weakness, numbness, nausea and vomiting. Acute ischemic stroke Clinically and radiographically (has right medullary stroke). Seems to be induced by her neck being manipulated. Mild left neuroforaminal stenosis at C5-C6 (but that would not explain her acute presentation) Acute Urinary tract infection Plan: * I personally discussed the case with neuro-interventionalist (Dr. Wallace) on 07/05/2022 regarding the case and he stated he reviewed the CTA head and neck. He feels patient had a stroke and no intervention is needed as inpatient and recommend patient to follow-up as outpatient with him for consideration of diagnositic cerebral angiogram and no inpatient intervention is needed and no transfer is needed. He recommended to continue with ASA 81mg, Brilinta 90mg 1 tab bid and Lipitor 80mg qhs. The medication is to be continues for secondary stroke prophylaxis and will have patient to follow-up with neuro- interventional team as outpatient for modifyication of medication. * Repeat MRI Brain (07/05/2022) but has thin slices and reported as evidence for acute infarct over the right side of medulla as above. No mass effect. I personally reviewed the MRI and I agree with the finding * Primary team consulted Orthopedic surgery team for concern of cervical injury and they agree that this seems like stroke. * I started the patient on Baclofen 5mg 1 tab bid PRN for her increase tone over the left upper extremity and if shows benefit the make it as scheduled. * Continue neuro-checks * Continue cardiac monitoring * PT, OT and NARCOTICS AND VICE DETECTIVE are consulted * Dr. Mars is consulted for inpatient rehab. * Will defer the rest of medical management to the primary team. * For DVT prophylaxis: On subq heparin 5000U every 8 hours. * Patient to follow-up with neurologist within 1-2 weeks as outpatient and to follow-up with neuro-interventionalist ([phone]). I notified the nurse to place neuro-interventionalist information on her discharge paper. The patient would benefit from inpatient rehab. The plan is discussed in detailed with the patient, her father who is at bedside and her nurse. Total of 35 minutes is spent on discussing with patient and her family member and delegating case. No additional work-up is needed and pending to be discharged to inpatient rehab. Dr. Stanley will start neurology service tomorrow ARo Rubio M.D. Neuro-Hospitalist Time with Patient: Greater than 30
[2022-07-07 11:29] LABS: Glucose,Whole Blood 118 mg/dL (70-110)
[2022-07-07 16:45] LABS: Glucose,Whole Blood 124 mg/dL (70-110)
[2022-07-07 20:49] LABS: Glucose,Whole Blood 107 mg/dL (70-110)
[2022-07-07] MEDS: ATORVASTATIN 80 MG TAB PO SCH (21:07)
[2022-07-07] MEDS: ONDANSETRON 4 MG/2 ML VIAL IVP PRN (21:44)
[2022-07-07] MEDS: MECLIZINE 12.5 MG TAB PO PRN (22:39)
[2022-07-07] MEDS ORDERED: diazePAM 2 MG TAB PO ONE (23:00)
[2022-07-08] MEDS: HEPARIN SODIUM,PORCINE/PF 5,000 UNIT/0.5 ML SYRINGE SQ SCH ×3 (00:13→17:45)
[2022-07-08] MEDS: SODIUM CHLORIDE 0.9% 1,000 ML IV SCH ×2 (03:06→17:45)
[2022-07-08] MEDS: NON FORMULARY DRUG (Dextroamphetamine/Amphetamine [Adderall 20 Mg Tablet] 20 MG Tablet) PO SCH ×2 (07:09→17:38)
[2022-07-08 07:24] LABS: Glucose,Whole Blood 98 mg/dL (70-110)
[2022-07-08] MEDS: INSULIN ASPART (NovoLOG) 100 UNIT/ML VIAL SQ SCH ×3 (10:11→17:38)
[2022-07-08] MEDS: ASPIRIN 81 MG PO SCH (10:18)
[2022-07-08] MEDS: CEPHALEXIN 500 MG CAP PO SCH ×3 (10:18→17:44)
[2022-07-08] MEDS: TICAGRELOR 90 MG TAB PO SCH (10:19)
[2022-07-08] MEDS: PHENAZOPYRIDINE 200 MG TAB PO SCH ×2 (10:19→17:44)
[2022-07-08] MEDS: CHOLESTYRAMINE (WITH SUGAR) 4 GM PACKET PO SCH ×2 (10:19→17:44)
[2022-07-08 10:28] VITALS: TEMP 98.2
--- NOTE | 2022-07-08 10:37 | PN ---
PROGRESS NOTE she was able to text me on my phone about the UTI yesterday, so I think she is improving when I seen her yesterday, but Neurology has been following her. EKG shows moderate ST wave abnormalities, repeat CT is negative. Repeat MRI of the brain shows acute infarct over the right side of the medulla, confirmed by Neurology Radiology secondary to chiropractor manipulation which triggered it. Right medullary stroke seems to be induced by manipulated. No intervention is needed after multiple neurology consults. Followup possible cerebral angiogram. No inpatient intervention is needed. No transfers needed. Continue on aspirin, , Lipitor. Follow up as an outpatient with Neurology. Possibly go to inpatient rehab as the left side is weak. PT/OT is consulted. The patient was given baclofen 5 mg b.i.d. p.r.n. for increased tone of the left upper extremity. The patient may get a scheduled dose of the heparin subcutaneously at this point. neurology outpatient will figure maybe go to inpatient rehab. PROGNOSIS: Guarded. MMODL / IJN: [id number] /
[2022-07-08 11:45] LABS: Glucose,Whole Blood 95 mg/dL (70-110)
[2022-07-08] MEDS ORDERED: LORazepam 0.5 MG TAB PO PRN (15:10)
--- NOTE | 2022-07-08 16:52 | P.PN ---
Subjective Progress Note Date: 07/08/[address] Jose E Rubio. Please refer to his note for details. Patient is a 32-year-old right-handed female who had undergone neck manipulation by chiropractor, that resulted in right medullary stroke. No dissection reported on imaging. Patient currently on aspirin, Brilinta and Lipitor. Dr. Rubio has cleared the patient to be transferred to inpatient rehab. Awaiting transfer to rehab facility. Patient states that today she feels slightly better. Her left leg is stronger. She cannot feel anything on left side of the face. She can feel tingling sensation in the left arm and leg. Denies any symptoms in the right side of the body. Her vision has improved (initially difficulty with focusing), her speech is better. She states that she still gets dizzy if moves bedfast. If she gets up, cannot breathe and feels dizzy. Her nausea has gone today, yesterday she was very nauseous but today is better. She denies headache. Patient says that she has been going to chiropractor off and on for 2 years. She usually gets adjustments for her mid back or lower back about once or twice a month. She never had neck adjustment performed in the past, except this time when after getting neck adjustment, she immediately had a transient visual blackout, felt somewhat warm sensation in right side of her neck. Her blood pressure shot up, and she started throwing up, and started having hiccups. Patient's brought her to the hospital directly from the chiropractor's office. Please refer to the ED report, and Dr. Jose E Rubio as report for further details about earlier management. SOME OF THE WORK-UP DURING THIS HOSPITAL VISIT CONSISTED OF: Lipid Panel: T, Cholestrolel 139, LDL 67, HDL 60 UD: +ve Amphetamine and Benzo (she received benzo in our facility). Urine HCG Not detected. CT of the head is reported as negative CT scan of the brain. I personally reviewed the CT of the head and is negative for any acute ischemia, subacute ischemia or any interpretable hemorrhage. CT cervical spine was reported as mild straightening of the cervical spine and could relate to spasm. No fracture seen. CT angiography of the head and neck was reported as negative MRI Brain and Cervical spine: Is reported as no evidence for acute CVA or mass. Mild left neurofaraminal stenosis at C5-C6 secondary to disc herniation. No central disc stenosis. I reviewed the images and agree with evidence of possible acute ischemia involving the right anterior medulla. MRA neck is reported as no signficant focal stenosis or dissection in the common or internal carotid arteries bilaterally. No significant stenosis or aneurysm at the level of [place]. Carotid Duplex is reported as no hemodynamically significant stenosis of the proximal internal carotid arteries by Doppler criteria, an indirect measurement of carotid stenosis. 2D echo is reported as normal LV systolic function ejection fraction greater than 60%. Redunant mitral valve leaflets. In body of report it is reported as normal left atrium. No mention of bubble even though I ordered it with bubble study. EKG is reported as sinus rhythm. Moderate T-wave abnormality, consider anterior ischemia. Abnormal EKG. Repeat CT of the head on 07/05/2022 was reported as no acute intracranial process. Repeat MRI Brain using thin cut slices (07/05/2022) is reported as evidence for acute infarct over the right side of medulla as above. No mass effect. I personally reviewed the MRI and I agree with the finding Objective - Vital Signs Vital signs: Vital Signs Temp 98.2 F 07/08/22 08:00 Pulse 95 07/08/22 12:00 Resp 18 07/08/22 12:00 BP 139/86 07/08/22 12:00 Pulse Ox 95 07/08/22 12:00 FiO2 Intake & Output 07/07/22 07/08/22 07/08/22 18:59 06:59 18:59 Output Total 200 350 Balance -200 -350 Output: Urine 200 Stool 350 Other: Voiding Method Bedside Commode Bedside Commode Bedside Commode Bedpan Bedpan Bedpan # Voids 1 2 # Bowel Movements 1 - Exam Patient is a young female, very pleasant, in no acute distress. Patient is alert awake oriented to time place and person. Speech and language functions are normal. Attention, concentration and fund of knowledge is adequate. No aphasia or dysarthria. On cranial nerve examination, pupils are equal, round and reacting to light, visual snell are full on confrontation, with no neglect on double simultaneous stimulation. Her extraocular muscles are intact with no nystagmus. Patient has left facial weakness, central type. Her tongue protrudes to the midline. P alatal elevation is normal, hearing is normal for finger rubbing bilaterally, facial sensation for light touch severely decreased on left side of the face. Sensation for temperature is slightly decreased in the left side of the face as compared to the right. Shoulder shrug appears equal strength bilaterally. On muscle strength testing, the strength is normal in the right arm and right leg. On the left side, deltoid 3-, biceps 3, triceps 2, vp ancillary 0, hip flexion 4 to 4+, ankle dorsiflexion 0, plantarflexion 5-. Deep tendon reflexes are (right/left) biceps 2+/2+, brachioradialis 1+/1+, knee 3/3, ankle 2+/2+, plantar is downgoing on the right, questionable up on the left. Sensory to light touch is producing tingling in the left arm and left leg, but normal on the right side. Sensory to cold sensation is equal in both arms and legs bilaterally. Cerebellar function showed no ataxia for [id number] testing in the right upper extremity, cannot perform in the left upper extremity due to severe weakness. [id number] testing is normal on the right, whereas severe ataxia on the left side. Tone is increased on the left and bulk of muscles normal. Gait not checked. On general examination, there is no carotid bruit or murmur, S1-S2 audible. Abdomen is soft nontender. Chest is clear. Peripheral pulses are present. No edema. Patient's current NIH stroke scale is 6. (0, 0, 0, 0, 0, 1, 3, 0, 0, 0, 1, 1, 0, 0, 0) - Labs CBC & Chem 7: 07/06/22 12:15 07/03/22 19:50 Labs: Abnormal Lab Results - Last 24 Hours (Table) 07/07/22 Range/Units 16:44 POC Glucose (mg/dL) 124 H (70-110) mg/dL Assessment and Plan Assessment: This is a 32 year-old woman who was at chiropractor and had her neck manipulated on 07/03/2022, and immediately had transient visual blackout, followed by left sided weakness, numbness, nausea and vomiting. Acute ischemic stroke Clinically and radiographically (has right anterior medullary stroke). Seems to be induced by her neck being manipulated. Cannot rule out right vertebral arterial dissection. Mild left neuroforaminal stenosis at C5-C6 (but that would not explain her acute presentation) Acute Urinary tract infection Plan: * Dr. Rubio had discussed the case with neuro-interventionalist (Dr. Wallace) on 07/05/2022 regarding the case and he stated he reviewed the CTA head and neck. He feels patient had a stroke and no intervention is needed as inpatient and recommend patient to follow-up as outpatient with him for consideration of diagnositic cerebral angiogram and no inpatient intervention is needed and no transfer is needed. He recommended to continue with ASA 81mg, Brilinta 90mg 1 tab bid and Lipitor 80mg qhs. The medication is to be continued for secondary stroke prophylaxis and will have patient to follow-up with neuro- interventional team as outpatient. * Repeat MRI Brain (07/05/2022) with thin slices and reported as evidence for acute infarct over the right side of medulla as above. No mass effect. I personally reviewed the MRI. Acute stroke mainly involves the right anterior Medulla, however it seems to extend linearly posteriorly involving the right paramedian region as well. Will review MRI with the radiologist. * Continue Baclofen 5mg 1 tab bid PRN for her increase tone over the left upper extremity. * Continue cardiac monitoring * PT, OT and RN MED SURG are consulted * Dr. Mars has accepted patient for inpatient rehab. * For DVT prophylaxis: On subq heparin 5000U every 8 hours. * Patient to follow-up with neurologist within 1-2 weeks as outpatient and to follow-up with neuro-interventionalist ([phone]). Dr. Jose E Rubio has notified the nurse to place neuro-interventionalist information on her discharge paper. The plan is discussed in detailed with the patient, her father who is at bedside. Later on patient's also arrived.
[2022-07-08 17:58] VITALS: BP 137/92; PULSE 83; RESP 16
--- NOTE | 2022-07-09 08:30 | DS ---
DISCHARGE SUMMARY DISCHARGE DIAGNOSIS: Status post cervical manipulation with acute ischemic stroke to the right medullary area induced by her neck pain manipulated, mild left neural foraminal stenosis, C5, C6, depression, bipolar, cervical spasm, anxiety, mood disorder. MEDICATIONS: 1. Aspirin 81 mg daily. 2. Keflex 500 mg q.i.d. for UTI. 3. Baclofen 5 mg b.i.d. p.r.n. for spasm of the neck. 4. Lipitor 80 q.h.s. 5. Pyridium 200 mg t.i.d. for urine pain. 6. Antivert 12.5 q.8 hours p.r.n. for vertigo. 7. Brilinta 90 mg b.i.d. 8. Questran 4 mg b.i.d. 9. Acetaminophen 650 q.8h p.r.n. 10.Questran 4 mg q.12 hours p.r.n. for diarrhea. 11.Multivitamin daily. 12.Ventolin inhaler 2 puffs q.6 hours p.r.n. for shortness of breath. 13. 20 mg b.i.d. 14.QVAR 80 mcg 1 puff b.i.d. CONDITION: Stable. PROGNOSIS: Guarded. Ambulate as tolerated. The patient came in with acute right medullary stroke, seen by neurologist, rivet tester, relay telegrapher. Stroke was thought to be due to heparin right during the cervical manipulation. Had multiple MRIs and CAT scans. Neurology intervention doctors were discussed with, the patient was placed on treatment for strokes, was stable, depression was stable. She has some anxiety due to stroke. Please see further orders. Follow up for rehab as she has left-sided in the left arm and left leg. A 3/5 strength and maybe 2/5 strength in the left hand, otherwise left arm strength 3/5, for lower leg is 4/5. Continue physical therapy with . MMCAROLL / IJN: [id number] /
== END 2022-07-08 19:22 | DRG 65 ==
LOC: EC 18:43 → 3SCARD 21:50
PROVIDERS: ADMIT Family Medicine; ATTEND Family Medicine
DX: I63.9 Cerebral infarction, unspecified (principal); G81.94 Hemiplegia, unspecified affecting left nondominant side; N39.0 Urinary tract infection, site not specified; Z28.310 Unvaccinated for COVID-19; M50.222 Other cervical disc displacement at C5-C6 level; M48.02 Spinal stenosis, cervical region; R29.705 NIHSS score 5; R29.706 NIHSS score 6; R33.9 Retention of urine, unspecified; R47.81 Slurred speech; E87.6 Hypokalemia; J45.20 Mild intermittent asthma, uncomplicated; F41.9 Anxiety disorder, unspecified; F32.A Depression, unspecified; F90.9 Attention-deficit hyperactivity disorder, unspecified type; Z79.51 Long term (current) use of inhaled steroids; Z79.899 Other long term (current) drug therapy; Z90.49 Acquired absence of other specified parts of digestive tract; Z87.19 Personal history of other diseases of the digestive system
CPT/HCPCS: 36415; 70450; 70496; 70498; 70544; 70549; 70551; 72125; 72141; 80053; 80061; 80306; 81001; 81025; 83690; 84145; 84484; 85025; 85610; 85730; 87077; 87086; 87186; 93005; 93306; 93880; 94640; 94760; 96374; 96375; 96376; 99291

== ENCOUNTER 2024-03-17 22:03 | Emergency (ER) | payer BC ==
[2024-03-17 23:14] VITALS: RESP 18; TEMP 98.4
--- NOTE | 2024-03-18 00:59 | XR ---
EXAM: XR Soft Tissue Neck CLINICAL HISTORY: ITS.REASON XR Reason: Difficulty swallowing TECHNIQUE: Frontal and lateral views of the soft tissues of the neck. COMPARISON: No relevant prior studies available. FINDINGS: Airway: Unremarkable. No abnormal narrowing. Bones/joints: Unremarkable. No acute fracture. Soft tissues: Unremarkable. No abnormal soft tissue prominence. Normal epiglottis. IMPRESSION: Normal neck x-rays.
[2024-03-18] MEDS: GLUCAGON 1 MG/ML VIAL IM STA (01:45)
[2024-03-18] MEDS: MAG HYDROX/AL HYDROX/SIMETH 30 ML, HYOSCYAMINE ELIXIR 10 ML, LIDOCAINE VISCOUS 2% 10 ML PO STA (02:25)
--- NOTE | 2024-03-18 02:25 | ED ---
ENT HPI - General Chief complaint: ENT Stated complaint: Difficulty Swallowing Time Seen by Provider: 03/17/24 22:51 Source: patient Mode of arrival: ambulatory Limitations: no limitations - History of Present Illness Initial comments: 33-year-old female presenting with chief complaint of foreign body sensation in the throat. Patient states that she felt as though she was having a difficult time swallowing today. After eating some tater tots she had the sensation that something was stuck in her throat. She is still able to breathe eat and drink. Patient had her regular Botox injections to her left upper extremity earlier today. No drooling, sore throat, fever, muffled voice. - Related Data Home Medications Medication Instructions Recorded Confirmed Albuterol Inhaler [Ventolin Hfa 2 puff INHALATION RT-Q6H PRN 11/03/20 07/03/22 Inhaler] Multivitamins, Thera [Multivitamin 1 tab PO DAILY 11/03/20 07/03/22 (formulary)] Beclomethasone Dip 80 Mcg/Puff 1 puff INHALATION RT-BID PRN 07/03/22 07/03/22 [Qvar 80 mcg] Dextroamphetamine/Amphetamine 20 mg PO BID 07/03/22 07/03/22 [Adderall] Previous Rx's Medication Instructions Recorded Acetaminophen Tab [Tylenol] 650 mg PO Q6HR PRN tab 07/08/22 Aspirin 81 mg PO DAILY tab 07/08/22 Atorvastatin [Lipitor] 80 mg PO HS tab 07/08/22 Baclofen [Lioresal] 5 mg PO BID PRN 7 Days #14 tab 07/08/22 Cephalexin [Keflex] 500 mg PO QID 7 Days #20 cap 07/08/22 Cholestyramine (with Sugar) 4 gm PO BID@1000,1800 packet 07/08/22 [Questran Packet] Meclizine [Antivert] 12.5 mg PO Q8HR PRN tab 07/08/22 Phenazopyridine [Pyridium] 200 mg PO TID tab 07/08/22 Ticagrelor [Brilinta] 90 mg PO BID tab 07/08/22 Allergies Allergy/AdvReac Type Severity Reaction Status Date / Time No Known Allergies Allergy Verified 03/17/24 22:50 Review of Systems ROS Statement: Those systems with pertinent positive or pertinent negative responses have been documented in the HPI. ROS Other: All systems not noted in ROS Statement are negative. Past Medical History Past Medical History: CVA/TIA Additional Past Medical History / Comment(s): With her first she had mild pre-eclampsia (hypertension). History of Any Multi-Drug Resistant Organisms: None Reported Past Surgical History: Section, Cholecystectomy, Tonsillectomy Past Anesthesia/Blood Transfusion Reactions: Previous Problems w/ Anesthesia Additional Past Anesthesia/Blood Transfusion Reaction / Comment(s): HAD TO HAVE BLOOD TRANSFUSION WITH first c/s, took long time to come out-"they had to give me something to reverse the anesthesia" Past Psychological History: No Psychological Hx Reported Smoking Status: Never smoker Past Alcohol Use History: None Reported Past Drug Use History: None Reported - Past Family History Mother Family Medical History: No Reported History General Exam Limitations: no limitations General appearance: alert, in no apparent distress Head exam: Present: atraumatic, normocephalic Eye exam: Present: normal appearance, EOMI ENT exam: Present: normal exam, normal oropharynx, mucous membranes moist Neck exam: Absent: tenderness, meningismus Respiratory exam: Present: normal lung sounds bilaterally. Absent: respiratory distress, wheezes, rales, rhonchi, stridor Cardiovascular Exam: Present: regular rate, normal rhythm, normal heart sounds. Absent: systolic murmur, diastolic murmur, rubs, gallop, clicks Neurological exam: Present: alert, oriented X3 Psychiatric exam: Present: normal affect, normal mood Skin exam: Present: warm, dry Course Vital Signs 03/17/24 03/18/24 03/18/24 22:47 01:00 02:48 Temperature 98.4 F Pulse Rate 96 82 88 Respiratory 18 18 18 Rate Blood Pressure 157/105 148/92 148/70 O2 Sat by Pulse 100 100 100 Oximetry Medical Decision Making - Medical Decision Making Was pt. sent in by a medical professional or institution (, PA, FIRE EXTINGUISHER TESTER, urgent care, hospital, or shelter...) When possible be specific @ -No Did you speak to anyone other than the patient for history (EMS, parent, family, police, friend...)? What history was obtained from this source @ -No Did you review nursing and triage notes (agree or disagree)? Why? @ -I reviewed and agree with nursing and triage notes Were old charts reviewed (outside hosp., previous admission, EMS record, old EKG, old radiological studies, urgent care reports/EKG's, shelter records)? Report findings @ -No old charts were reviewed Differential Diagnosis (chest pain, altered mental status, abdominal pain women, abdominal pain men, vaginal bleeding, weakness, fever, dyspnea, syncope, headache, dizziness, GI bleed, back pain, seizure, CVA, palpatations, mental health, musculoskeletal)? @ -Differential includes foreign body, residual foreign body sensation, mass, this is not an all-inclusive list EKG interpreted by me (3pts min.). @ -As above X-rays interpreted by me (1pt min.). @ -Soft tissue neck x-ray is normal CT interpreted by me (1pt min.). @ -None done U/S interpreted by me (1pt. min.). @ -None done What testing was considered but not performed or refused? (CT, X-rays, U/S, labs)? Why? @ -None What meds were considered but not given or refused? Why? @ -None Did you discuss the management of the patient with other professionals (amrik oconnor i.e. , PA, FIRE EXTINGUISHER TESTER, lab, RT, psych nurse, social service director, cemetery keeper, teacher, general service officer, binder caser)? Give summary @ -No Was smoking cessation discussed for >3mins.? @ -No Was critical care preformed (if so, how long)? @ -No Were there social determinants of health that impacted care today? How? (Homelessness, low income, unemployed, alcoholism, drug addiction, transportation, low edu. Level, literacy, decrease access to med. care, usp, rehab)? @ -No Was there de-escalation of care discussed even if they declined (Discuss DNR or withdrawal of care, Hospice)? DNR status @ -No What co-morbidities impacted this encounter? (DM, HTN, Smoking, COPD, CAD, Cancer, CVA, ARF, Chemo, Hep., AIDS, mental health diagnosis, sleep apnea, morbid obesity)? @ -None Was patient admitted / discharged? Hospital course, mention meds given and route, prescriptions, significant lab abnormalities, going to OR and other pertinent info. @ -33-year-old female presenting with chief complaint of foreign body sensation in the throat. States that she fell like she is having difficulty swallowing today and then after eating tater tots has had a foreign body sensation. She is still able to breathe eat and drink. History and physical exam are conducted. Normal posterior pharynx. No muffled voice or drooling on exam. She is negative for influenza, RSV, COVID, group A strep. Negative soft tissue neck x- ray. Patient is given glucagon and continues to report foreign body sensation. She is then given a GI cocktail. She is able to swallow and has no difficulty breathing. She is instructed to follow-up with her PCP and GI. Discharged home. Follow-up with PCP. Report back to ER with any new or worsening symptoms. Discussed return parameters and answered all questions. Patient conv eyed verbal understanding and agreed to the plan. I discussed this case in detail with my attending Dr. Jerome Undiagnosed new problem with uncertain prognosis? @ -No Drug Therapy requiring intensive monitoring for toxicity (Heparin, Nitro, Insulin, Cardizem)? @ -No Were any procedures done? @ -No Diagnosis/symptom? @ -Dysphagia, Acute, or Chronic, or Acute on Chronic? @ -Acute Uncomplicated (without systemic symptoms) or Complicated (systemic symptoms)? @ -Uncomplicated Side effects of treatment? @ -No Exacerbation, Progression, or Severe Exacerbation? @ -No Poses a threat to life or bodily function? How? (Chest pain, [place], [place], pneumonia, PE, COPD, DKA, ARF, appy, cholecystitis, CVA, Diverticulitis, Homicidal, Suicidal, threat to staff... and all critical care pts) @ -Low likelihood - Lab Data Lab Results 03/17/24 03/17/24 Range/Units 23:55 23:55 Influenza Type A (PCR) Not Detected (Not Detectd) Influenza Type B (PCR) Not Detected (Not Detectd) RSV (PCR) Not Detected (Not Detectd) SARS-CoV-2 (PCR) Not Detected (Not Detectd) Group A Strep (PCR) NOT DETECTED (Not Detectd) Disposition Clinical Impression: Dysphagia Disposition: HOME SELF-CARE Condition: Good Instructions (If sedation given, give patient instructions): Dysphagia (ED) Additional Instructions: Follow-up with PCP and GI. Report back to ER with any new or worsening symptoms. Is patient prescribed a controlled substance at d/c from ED?: No Referrals: Kiet Stacy MD [Primary Care Provider] - 1-2 days Adelita Fontana MD [STAFF PHYSICIAN] - 1-2 days Time of Disposition: 02:25
[2024-03-18 02:56] VITALS: BP 148/70; PULSE 88
== END 2024-03-18 02:52 | disposition home or self-care (01) ==
LOC: EC 22:03
DX: R13.10 Dysphagia, unspecified (principal); Z11.52 Encounter for screening for COVID-19
CPT/HCPCS: 87651; 87636; 70360; 99284; 96372; J1610